=== PATIENT | male | born 1930 | race Caucasian/White ===

== ENCOUNTER → 2016-06-18 | Outpatient (CLI) | payer MEDICARE ==
[~2016-06-18] MED LIST: ATOR20TA G-TUBE; BAZACRE TOP; CALTTAB G-TUBE; FERR220E G-TUBE; LEVO88TA2 G-TUBE; SUPETAB30 G-TUBE; WARF2.5T40 PO; WARF5TAB PO; [UNRECOGNIZED DRUG - CODE] G-TUBE
--- NOTE | 2016-06-18 10:31 | RADRPT ---
EXAM DATE/TIME: 06/18/2016 00:00 [facility] COMPARISON: No previous studies available for comparison. INDICATIONS : Dysphagia. FLUORO TIME: 2.8 minutes IMAGE COUNT: 0 CONTRAST: Dose as prescribed by speech pathologist. MEDICAL HISTORY : silent aspiration SURGICAL HISTORY : endorectomy, peg tube ENCOUNTER: Initial ACUITY: 4 - 6 months PAIN SCORE: 0/10 LOCATION: Bilateral neck FINDINGS: A modified barium swallow was performed with speech pathology. Patient was given a variety of liquids to swallow. There is some pooling in the vallecula and piriform sinuses. No penetration or aspiration. For a full detailed report, see report by the speech pathologist. CONCLUSION: Full report to follow from speech pathologist. No aspiration. Ashish Fried MD on June 18, 2016 at 10:29 Board Certified Radiologist. This report was verified electronically.
== END ==
LOC: HRAD 09:36
PROVIDERS: ATTEND Internal Medicine Gastroenterology
DX: R13.10 Dysphagia, unspecified (principal)
CPT/HCPCS: 74230

== ENCOUNTER 2016-11-16 08:15 | Inpatient (IN) | payer MEDICARE ==
[~2016-11-16] VITALS: Ht 177.8 cm; Wt 72.9 kg
[2016-11-16] VITALS (16 sets, daily range): BP systolic 134–175; BP diastolic 66–89; PULSE 83–114; RESP 12–18; TEMP 97.7–99.8; O2SAT 95–99
[2016-11-16] MEDS ORDERED: ATOR20TA15 G-TUBE (08:37)
[2016-11-16] MEDS ORDERED: CALC1SOL G-TUBE (08:37)
[2016-11-16] MEDS ORDERED: FERR300S G-TUBE (08:37)
[2016-11-16] MEDS ORDERED: CENTCHW4 G-TUBE (08:37)
[2016-11-16] MEDS ORDERED: LEVO88TA2 G-TUBE (08:37)
[2016-11-16] MEDS ORDERED: WARF-18 G-TUBE (08:37)
--- NOTE | 2016-11-16 09:10 | PD ---
HPI Chief Complaint: Fall Time Seen by Provider: 08:31 Travel History International Travel<30 days: No Contact w/Intl Traveler<30days: No Traveled to known affect area: No History of Present Illness HPI 86-year-old male with a history of dementia, atrial fibrillation, hyperlipidemia , hypothyroidism, who presents after a mechanical fall at home. Patient states he finished doing his tube feeding and then went to go exercise. He reports tripping and falling. He denies any loss of consciousness. He reports pain in his lower neck. He also reports pain to his left side of his head. Pain also in his lower lumbar spine and left shoulder and left heel. The patient is on Coumadin for his A. fib. He has a history of dysphagia and tube feeds. He also has a recent skin cancer removal on his right upper cheek below his eye. There is no incontinence. There is no numbness or tingling or weakness of his extremities. PFSH Past Medical History Hx Anticoagulant Therapy: Yes (WARFARIN) Blood Disorders: No Heart Rhythm Problems: Yes Cancer: No Cardiovascular Problems: Yes High Cholesterol: Yes Chest Pain: No Congestive Heart Failure: No Diabetes: No Diminished Hearing: No Endocrine: Yes Gastrointestinal Disorders: Yes (acid reflux) Glaucoma: No Genitourinary: No Hepatitis: No Hiatal Hernia: No Hypertension: Yes Immune Disorder: No Musculoskeletal: Yes (arthritis) Neurologic: No Psychiatric: No Reproductive: No Respiratory: No Integumentary: Yes (SKIN CA ) Thyroid Disease: Yes (hypothyroidism) Tetanus Vaccination: > 5 Years Influenza Vaccination: Yes Past Surgical History AICD: No Body Medical Devices: STERNAL WIRE FROM CABG Cardiac Surgery: Yes (CABG X 4, LEFT CAROTID ENDART. ) Eye Surgery: Yes (CATARACT L&R 2011) Joint Replacement: No Oral Surgery: Yes (TONSILLSL; UVULA ) Pacemaker: No Other Surgery: Yes Social History Alcohol Use: No Tobacco Use: No Substance Use: No Allergies-Medications (Allergen,Severity, Reaction): Coded Allergies: Penicillin (Verified Allergy, Severe, CHILD GIVEN TO FAST, 11/16/16) Reported Meds & Prescriptions Reported Meds & Active Scripts Active Reported Calcitriol Liq (Calcitriol) 1 Mcg/Ml Soln 1 Mcg G-TUBE DAILY Levothyroxine (Levothyroxine Sodium) 88 Mcg Tab 88 Mcg G-TUBE DAILY Ferrous Sulfate Liq (Ferrous Sulfate) 300 Mg/5 Ml Soln 220 Ml G-TUBE DAILY Warfarin 2.5 Mg Tab 2.5 Mg G-TUBE DAILY Atorvastatin (Atorvastatin Calcium) 20 Mg Tab 20 Mg G-TUBE HS Centrum (Multiple Vitamins W/ Minerals) 1 Chew 1 Tab G-TUBE DAILY Review of Systems ROS Limitations: Poor Historian, Other: (history of dementia) Except as stated in HPI: all other systems reviewed are Neg HENT: Positive: Headaches (left lateral), Neck Pain (lower lumbar), No: Lightheadedness Cardiovascular: No: Chest Pain or Discomfort, Palpitations Respiratory: No: Cough, Shortness of Breath Gastrointestinal: No: Nausea, Vomiting, Abdominal Pain Genitourinary: No: Dysuria, Incontinence Musculoskeletal: Positive: Pain (left shoulder, lower lumbar, left heel.), No : Weakness, Edema Neurologic: Positive: Headache, No: Weakness, Dizziness Physical Exam Narrative GENERAL: Well-developed male in no acute respiratory distress. He is in C- spine backboard immobilization. SKIN: Focused skin assessment warm/dry. HEAD: Normocephalic. No obvious external signs of trauma. The patient does have a bandage under his left eye from where he had a skin cancer removed. EYES:No scleral icterus. No injection. Mild drainage in the bilateral eyes. ENT: No nasal bleeding or discharge. Mucous membranes pink and moist. NECK: Trachea midline. C-collar immobilization. On attempt to clear C-spine, patient had no pain on the posterior spinous processes. On lateral movement from side to side he had no cervical pain. On extension of his neck he did have some subjective tenderness in the lower neck. CARDIOVASCULAR: Regular rate and rhythm. No murmur appreciated. RESPIRATORY: No accessory muscle use. Clear to auscultation. Breath sounds equal bilaterally. GASTROINTESTINAL: Abdomen soft, non-tender, nondistended. There is a PEG tube in place appears clean dry and intact as no evidence of infection. MUSCULOSKELETAL: No obvious deformities. Patient has subjective tenderness in his left lateral shoulder. There is good range of motion. Patient also has tenderness to his left heel. No obvious deformity. No abrasions. No pressure sores. On log roll, patient had subjective paraspinous tenderness in his mid lumbar region. No posterior spinous process tenderness. NEUROLOGICAL: Awake and alert. No obvious cranial nerve deficits. Motor grossly within normal limits. Normal speech. Data Data Last Documented VS Vital Signs Date Time Temp Pulse Resp B/P Pulse Ox O2 Delivery O2 Flow Rate FiO2 11/16/16 11:50 97.8 90 17 172/[address] Brain W/O Iv Contrast(Rout) (11/16/16 08:32) Ct Cerv Spine W/O Contrast (11/16/16 08:32) Foot, Heel Only ([id number]) (11/16/16 08:32) Shoulder, Limited(2vws) (11/16/16 08:32) Spine, Lumbar - Ltd (Ap & Lat) (11/16/16 08:32) Complete Blood Count With Diff (11/16/16 08:58) Comprehensive Metabolic Panel (11/16/16 08:58) Prothrombin Time / Inr (Pt) (11/16/16 08:58) Act Partial Throm Time (Ptt) (11/16/16 08:58) Iv Access Insert/Monitor (11/16/16 08:58) Ecg Monitoring (11/16/16 08:58) Oximetry (11/16/16 08:58) Fresh Frozen Plasma (Ffp) (11/16/16 11:46) Blood Product Administration .UPON TRANSFUSION (11/16/16 11:46) Sodium Chlor 0.9% 250 Ml Inj (Ns 250 Ml (11/16/16 12:00) Phytonadione Inj (Vitamin K Inj) (11/16/16 12:00) Labs Laboratory Tests Test 11/16/16 09:00 White Blood Count 6.9 TH/MM3 Red Blood Count 3.70 MIL/MM3 Hemoglobin 14.5 GM/DL Hematocrit 40.6 % Mean Corpuscular Volume 109.5 FL Mean Corpuscular Hemoglobin 39.3 PG Mean Corpuscular Hemoglobin 35.8 % Concent Red Cell Distribution Width 13.1 % Platelet Count 129 TH/MM3 Mean Platelet Volume 8.7 FL Neutrophils (%) (Auto) 66.5 % Lymphocytes (%) (Auto) 21.6 % Monocytes (%) (Auto) 9.0 % Eosinophils (%) (Auto) 2.6 % Basophils (%) (Auto) 0.3 % Neutrophils # (Auto) 4.6 TH/MM3 Lymphocytes # (Auto) 1.5 TH/MM3 Monocytes # (Auto) 0.6 TH/MM3 Eosinophils # (Auto) 0.2 TH/MM3 Basophils # (Auto) 0.0 TH/MM3 CBC Comment DIFF FINAL Differential Comment Prothrombin Time 23.6 SEC Prothromb Time International 2.1 RATIO Ratio Activated Partial 34.0 SEC Thromboplast Time Sodium Level 133 MEQ/L Potassium Level 4.1 MEQ/L Chloride Level 97 MEQ/L Carbon Dioxide Level 27.4 MEQ/L Anion Gap 9 MEQ/L Blood Urea Nitrogen 27 MG/DL Creatinine 1.03 MG/DL Estimat Glomerular Filtration 69 ML/MIN Rate Random Glucose 181 MG/DL Calcium Level 9.0 MG/DL Total Bilirubin 1.3 MG/DL Aspartate Amino Transf 30 U/L (AST/SGOT) Alanine Aminotransferase 30 U/L (ALT/SGPT) Alkaline Phosphatase 72 U/L Total Protein 6.6 GM/DL Albumin 3.4 GM/DL MDM Medical Decision Making Medical Screen Exam Complete: Yes Emergency Medical Condition: Yes Interpretation(s) Last 24 hours Impressions Shoulder X-Ray 11/16/16831 Signed Impressions: Service Date/Time: Wednesday, November 16, 2016 09:14 - CONCLUSION: Unremarkable study. Debbi Galeas MD Lumbar Spine X-Ray 11/16/16831 Signed Impressions: Service Date/Time: Wednesday, November 16, 2016 09:13 - CONCLUSION: Chronic changes. Debbi Galeas MD Head CT 11/16/16831 Signed Impressions: Service Date/Time: Wednesday, November 16, 2016 10:02 - CONCLUSION: Slight subarachnoid hemorrhage right high convexity superior parietal lobule with a tiny adjacent subdural hematoma. Debbi Galeas MD Foot X-Ray 11/16/16831 Signed Impressions: Service Date/Time: Wednesday, November 16, 2016 09:17 - CONCLUSION: Chronic changes and no evidence for acute fracture. Debbi Galeas MD Cervical Spine CT 11/16/16831 Signed Impressions: Service Date/Time: Wednesday, November 16, 2016 10:04 - CONCLUSION: Degenerative changes as described above without fracture. Wes Quintanilla MD FACR Differential Diagnosis Intracranial injury versus C-spine injury versus lumbar spine injury versus left shoulder injury versus left heel injury Narrative Course 86-year-old male with a history of atrial fibrillation, on Coumadin, presents after having a mechanical fall. The patient had neck pain left shoulder pain and lower back pain and left ankle pain initially. Then he started saying he had some pain in his posterior/left head. CT scan of the C-spine and head were ordered. Head CT shows a small subarachnoid and subdural hemorrhage on the right hemisphere. Patient is awake and appropriate. Vitamin K 10 mg have been ordered as well as 2 units of FFP. The patient's INR is 2.1. The case was discussed with Dr. Argelia STEIN I with neurosurgery and Dr. Katharine Rosado, blueprint processor. The patient be admitted to intensive care. I discussed with both patient and his about his condition and they're amenable to the plan. Diagnosis Primary Impression: right sided high convex to the subdural and subarachnoid hemorrhage. Additional Impressions: anticoagulated Atrial fibrillation Admitting Information Admitting Physician Requests: Admit Raghu Rasmussen MD Nov 16, 2016 09:10
[2016-11-16 09:27] LABS: AUTOMATED NEUTROPHIL # 4.6 TH/MM3 (1.8-7.7); BASOPHIL % 0.3 % (0.0-2.0); EOSINOPHIL # 0.2 TH/MM3 (0-0.4); EOSINOPHIL % 2.6 % (0.0-4.0); HEMATOCRIT 40.6 % (39.0-51.0); HEMO FLAGS DIFF FINAL; LYMPH % 21.6 % (9.0-44.0); LYMPHOCYTE # 1.5 TH/MM3 (1.0-4.8); MEAN CELL VOLUME 109.5 FL (80.0-100.0); MEAN CORPUSCULAR HEMOGLOBIN 39.3 PG (27.0-34.0); MEAN CORPUSCULAR HGB CONC 35.8 % (32.0-36.0); NEUT % 66.5 % (16.0-70.0); PLATELET COUNT 129 TH/MM3 (150-450); RED CELL DISTRIBUTION WIDTH 13.1 % (11.6-17.2); WHITE BLOOD COUNT 6.9 TH/MM3 (4.0-11.0)
--- NOTE | 2016-11-16 09:31 | RADRPT ---
EXAM DATE/TIME: 11/16/2016 09:17 [facility] COMPARISON: No previous studies available for comparison. INDICATIONS : Pain from fall onto concrete. MEDICAL HISTORY : None. SURGICAL HISTORY : None. ENCOUNTER: Initial ACUITY: 1 day PAIN SCORE: 3/10 LOCATION: Left heel. FINDINGS: No definite fractures, or dislocations are identified. No definite lytic or sclerotic lesion is seen . Chronic atherosclerotic calcifications are seen involving the visualized arteries. Calcaneal spurs are present at the attachment site of the plantar aponeurosis and Achilles tendon. CONCLUSION: Chronic changes and no evidence for acute fracture. Debbi Galeas MD on November 16, 2016 at 9:27 Board Certified Radiologist. This report was verified electronically.
[2016-11-16 09:35] LABS: INTERNATIONAL NORMALIZED RATIO 2.1 RATIO; PROTHROMBIN TIME - PATIENT 23.6 SEC (9.8-11.6)
[2016-11-16 09:51] LABS: ANION GAP 9 MEQ/L (5-15); AST (GOT) 30 U/L (15-37); BICARBONATE 27.4 MEQ/L (21.0-32.0); BLOOD UREA NITROGEN 27 MG/DL (7-18); CHLORIDE 97 MEQ/L (98-107); GLOMERULAR FILTRATION RATE 69 ML/MIN (>89); POTASSIUM 4.1 MEQ/L (3.5-5.1); SODIUM (NA) 133 MEQ/L (136-145)
--- NOTE | 2016-11-16 09:52 | RADRPT ---
EXAM DATE/TIME: 11/16/2016 09:13 [facility] COMPARISON: No previous studies available for comparison. INDICATIONS : Pain from fall onto concrete. MEDICAL HISTORY : None. SURGICAL HISTORY : J-tube placement. ENCOUNTER: Initial ACUITY: 1 day PAIN SCORE: 6/10 LOCATION: Lumbar spine. FINDINGS: No appreciable compression deformities, spondylolisthesis, or spondylolysis is seen. Significant deg enerative changes are seen within the disc space and facets. Chronic atherosclerotic calcifications a re seen without any definite aneurysmal dilatations for technique. CONCLUSION: Chronic changes. Debbi Galeas MD on November 16, 2016 at 9:49 Board Certified Radiologist. This report was verified electronically.
[2016-11-16 09:55] LABS: ALKALINE PHOSPHATASE 72 U/L (45-117); ALT (GPT) 30 U/L (12-78); TOTAL BILIRUBIN ADULT 1.3 MG/DL (0.2-1.0)
--- NOTE | 2016-11-16 10:02 | RADRPT ---
EXAM DATE/TIME: 11/16/2016 09:14 [facility] COMPARISON: No previous studies available for comparison. INDICATIONS : Pain from fall onto concrete. MEDICAL HISTORY : None. SURGICAL HISTORY : None. ENCOUNTER: Initial ACUITY: 1 day PAIN SCORE: 6/10 LOCATION: Left shoulder. FINDINGS: No definite fractures, or dislocations are identified. No definite lytic or sclerotic lesion is seen . The joint space is well maintained. CONCLUSION: Unremarkable study. Debbi Galeas MD on November 16, 2016 at 10:00 Board Certified Radiologist. This report was verified electronically.
--- NOTE | 2016-11-16 10:55 | RADRPT ---
EXAM DATE/TIME: 11/16/2016 10:02 [facility] COMPARISON: CT BRAIN W/O CONTRAST, January 05, 2016, 9:07. INDICATIONS : Fall, head and neck pain. RADIATION DOSE: 56.39 CTDIvol (mGy) MEDICAL HISTORY : Hypertension. SURGICAL HISTORY : Tonsillectomy. Carotid endarterectomy.CABG ENCOUNTER: Initial ACUITY: 1 day PAIN SCALE: 4/10 LOCATION: Left cranial TECHNIQUE: Multiple contiguous axial images were obtained of the head. Using automated exposure control and adj ustment of the mA and/or kV according to patient size, radiation dose was kept as low as reasonably a chievable to obtain optimal diagnostic quality images. DICOM format image data is available electro nically for review and comparison. FINDINGS: There is small area of subarachnoid hemorrhage in the high convexity superior parietal lobule wi th tiny subdural hematoma subcentimeter in size in the adjacent falx. There are gas bubbles anterior to the right maxillary sinus with slight degree of soft tissue swelling at this site. There is no john dence for skull fracture. There is no mass effect or signs of acute infarction. Slight degree of brai n atrophy is seen. Slight periventricular white matter changes are seen nonspecific mostly consistent with chronic small vessel ischemic changes. CONCLUSION: Slight subarachnoid hemorrhage right high convexity superior parietal lobule with a tiny adjacent sub dural hematoma. Debbi Galeas MD on November 16, 2016 at 10:44 Board Certified Radiologist. This report was verified electronically.
--- NOTE | 2016-11-16 11:02 | RADRPT ---
EXAM DATE/TIME: 11/16/2016 10:04 [facility] COMPARISON: No previous studies available for comparison. INDICATIONS : Fall, head and neck pain. RADIATION DOSE: 33.70 CTDIvol (mGy) MEDICAL HISTORY : Hypertension. SURGICAL HISTORY : CABG Carotid endarterectomy.Tonsillectomy. ENCOUNTER: Initial ACUITY: 1 day PAIN SCALE: 4/10 LOCATION: neck TECHNIQUE: Volumetric scanning of the cervical spine was performed. Multiplanar reconstructions in the sagittal, coronal and oblique axial planes were performed. Using automated exposure control and adjustment o f the mA and/or kV according to patient size, radiation dose was kept as low as reasonably achievable to obtain optimal diagnostic quality images. DICOM format image data is available electronically f or review and comparison. FINDINGS: There are moderate degenerative changes in the cervical spine. Degenerative changes are seen at the C1-C2 articulation. C2-C3: Mild facet disease is evident without significant spinal stenosis. C3-C4: Extensive uncinate ridging is present with bilateral neural foramina encroachment worse on the right than the left. C4-C5: Moderate uncinate ridging is present with significant facet disease and neural foramen encroachment o n the right. C5-C6: Mild uncinate ridging is present. Minimal neuroforamina encroachment is noted. C6-C7 moderate facet disease is evident with bilateral neural foramina encroachment worse on the left C7-T1 is in the level. CONCLUSION: Degenerative changes as described above without fracture. Wes Quintanilla MD FACR on November 16, 2016 at 10:58 Board Certified Radiologist. This report was verified electronically.
[2016-11-16] MEDS ORDERED: SODIUM CHLOR 0.9% 250 ML INJ 250 ML IV ONE (12:00)
[2016-11-16] MEDS ORDERED: MISCELLANEOUS NURSING INFORMATION XX SCH (13:00)
[2016-11-16] MEDS ORDERED: MAGNESIUM HYDROXIDE SUSP 30 ML CUP PO PRN (13:00)
[2016-11-16] MEDS ORDERED: SODIUM CHLORIDE 0.9% FLUSH 10 ML FLUSH IV FLUSH PRN (13:00)
[2016-11-16] MEDS ORDERED: CHLORHEXIDINE GLUCONATE 2 % 1 PACK (2 CLOTHS) TOP PRN (13:00)
[2016-11-16] MEDS ORDERED: LACTULOSE SYRUP 20 GM/30 ML CUP PO PRN (13:00)
[2016-11-16] MEDS ORDERED: BISACODYL 10 MG SUPP RECTAL PRN (13:00)
[2016-11-16] MEDS ORDERED: ACETAMINOPHEN 325 MG TAB PO PRN (13:00)
[2016-11-16] MEDS ORDERED: RESP: ALBUTEROL 2.5 MG/IPRATROPIUM 0.5 MG NEB (PRN) INH (13:00)
[2016-11-16] MEDS ORDERED: SENNOSIDES 8.6 MG TAB PO PRN (13:00)
[2016-11-16] MEDS: SODIUM CHLOR 0.9% 1000 ML INJ 1,000 ML IV SCH (13:33)
--- NOTE | 2016-11-16 13:45 | HHI.HP ---
HPI Service Critical Care Medicine Primary Care Physician Unknown Admission Diagnosis right traumatic subarachnoid/subdural hematoma, anticoagulated Diagnosis: Travel History International Travel<30 Days: No Contact w/Intl Traveler <30 Da: No Traveled to Known Affected Are: No History of Present Illness This is an 86-year-old male patient that presented to the ED status post a mechanical fall, with a recent history of progressive weakness. The patient is on chronic anticoagulation (coumadin) for atrial fibrillation. Imaging studies laboratory studies were obtained. The patient was noted to have an INR of 2.1, CT scan of the head revealed slight subarachnoid hemorrhage superior parietal lobe, and small subdural hemorrhage. 2 units of FFP are provided and vitamin K in the ED. Neurosurgery was consulted , and felt to be nonoperable at this time. The care medicine was consulted for management. PFSH Past Medical History Hx Anticoagulant Therapy: Yes (WARFARIN) Blood Disorders: No Heart Rhythm Problems: Yes Cancer: No Cardiovascular Problems: Yes High Cholesterol: Yes Chest Pain: No Congestive Heart Failure: No Diabetes: No Diminished Hearing: No Endocrine: Yes Gastrointestinal Disorders: Yes (acid reflux) Glaucoma: No Genitourinary: No Hepatitis: No Hiatal Hernia: No Hypertension: Yes Immune Disorder: No Musculoskeletal: Yes (arthritis) Neurologic: No Psychiatric: No Reproductive: No Respiratory: No Integumentary: Yes (SKIN CA ) Thyroid Disease: Yes (hypothyroidism) Tetanus Vaccination: > 5 Years Influenza Vaccination: Yes Past Surgical History AICD: No Body Medical Devices: STERNAL WIRE FROM CABG Cardiac Surgery: Yes (CABG X 4, LEFT CAROTID ENDART. ) Eye Surgery: Yes (CATARACT L&R 2011) Joint Replacement: No Oral Surgery: Yes (TONSILLSL; UVULA ) Pacemaker: No Other Surgery: Yes PEG placement 12/10/2015 Social History Alcohol Use: No Tobacco Use: No Substance Use: No Allergies-Medications (Allergen,Severity, Reaction): Coded Allergies: Penicillin (Verified Allergy, Severe, CHILD GIVEN TO FAST, 11/16/16) Reported Meds & Prescriptions Reported Meds & Active Scripts Active Reported Calcitriol Liq (Calcitriol) 1 Mcg/Ml Soln 1 Mcg G-TUBE DAILY Levothyroxine (Levothyroxine Sodium) 88 Mcg Tab 88 Mcg G-TUBE DAILY Ferrous Sulfate Liq (Ferrous Sulfate) 300 Mg/5 Ml Soln 220 Ml G-TUBE DAILY Warfarin 2.5 Mg Tab 2.5 Mg G-TUBE DAILY Atorvastatin (Atorvastatin Calcium) 20 Mg Tab 20 Mg G-TUBE HS Centrum (Multiple Vitamins W/ Minerals) 1 Chew 1 Tab G-TUBE DAILY Review of Systems ROS Limitations: Poor Historian Constitutional: COMPLAINS OF: Dizziness Gastrointestinal: Dysphagia PFSH Past Family Social History Past Medical History Skin cancer Hypertension Hyperlipidemia Carotid disease Hypothyroid Coronary artery disease Cataracts Dysphagia, cricopharyngeal spasms Vocal cord paralysis with palatal excision. Valvular heart disease Past Family Social History Allergies: Coded Allergies: Penicillin (Verified Allergy, Severe, CHILD GIVEN TO FAST, 11/16/16) Physical Exam Vital Signs Vital Signs Date Time Temp Pulse Resp B/P Pulse Ox O2 Delivery O2 Flow Rate FiO2 11/16/16 13:15 97.7 92 16 155/81 98 Room Air 11/16/16 11:50 97.8 90 17 172/88 98 Room Air 11/16/16 09:46 97.8 94 16 156/81 99 Room Air 11/16/16 08:58 16 98 Room Air 11/16/16 08:21 97.8 99 18 162/80 99 11/16/16 08:21 87 16 98 Room Air Physical Exam GENERAL: Elderly gentleman, weak but responsive SKIN: Warm and dry. HEAD: Atraumatic. Normocephalic. Minor ecchymotic bruise on forehead EYES: Pupils equal and round. No scleral icterus. No injection or drainage. Dressing clean dry intact right cheek( patient is status post excision of basal cell carcinoma) ENT: No nasal bleeding or discharge. Mucous membranes pink and moist. NECK: Trachea midline. No JVD. Uvula midline CARDIOVASCULAR: Normal rate, regular rhythm. RESPIRATORY: No accessory muscle use. Clear to auscultation. Breath sounds equal bilaterally. GASTROINTESTINAL: Abdomen soft, non-tender, nondistended. No guarding. MUSCULOSKELETAL: Extremities without clubbing, cyanosis, or edema. No obvious deformities. NEUROLOGICAL: Awake and alert. RASS 0. No gross focal/sensory deficits. Follows commands in all 4 extremities. Laboratory Laboratory Tests Test 11/16/16 11/16/16 09:00 12:00 White Blood Count 6.9 Red Blood Count 3.70 Hemoglobin 14.5 Hematocrit 40.6 Mean Corpuscular Volume 109.5 Mean Corpuscular Hemoglobin 39.3 Mean Corpuscular Hemoglobin 35.8 Concent Red Cell Distribution Width 13.1 Platelet Count 129 Mean Platelet Volume 8.7 Neutrophils (%) (Auto) 66.5 Lymphocytes (%) (Auto) 21.6 Monocytes (%) (Auto) 9.0 Eosinophils (%) (Auto) 2.6 Basophils (%) (Auto) 0.3 Neutrophils # (Auto) 4.6 Lymphocytes # (Auto) 1.5 Monocytes # (Auto) 0.6 Eosinophils # (Auto) 0.2 Basophils # (Auto) 0.0 CBC Comment DIFF FINAL Differential Comment Prothrombin Time 23.6 Prothromb Time International 2.1 Ratio Activated Partial 34.0 Thromboplast Time Sodium Level 133 Potassium Level 4.1 Chloride Level 97 Carbon Dioxide Level 27.4 Anion Gap 9 Blood Urea Nitrogen 27 Creatinine 1.03 Estimat Glomerular Filtration 69 Rate Random Glucose 181 Calcium Level 9.0 Total Bilirubin 1.3 Aspartate Amino Transf 30 (AST/SGOT) Alanine Aminotransferase 30 (ALT/SGPT) Alkaline Phosphatase 72 Total Protein 6.6 Albumin 3.4 Blood Bank Comment Result Diagram: 11/16/1600 11/16/16899 Imaging Last Impressions Shoulder X-Ray 11/16/16831 Signed Impressions: Service Date/Time: Wednesday, November 16, 2016 09:14 - CONCLUSION: Unremarkable study. Debbi Galeas MD Lumbar Spine X-Ray 11/16/16831 Signed Impressions: Service Date/Time: Wednesday, November 16, 2016 09:13 - CONCLUSION: Chronic changes. Debbi Galeas MD Head CT 11/16/16831 Signed Impressions: Service Date/Time: Wednesday, November 16, 2016 10:02 - CONCLUSION: Slight subarachnoid hemorrhage right high convexity superior parietal lobule with a tiny adjacent subdural hematoma. Debbi Galeas MD Foot X-Ray 11/16/16831 Signed Impressions: Service Date/Time: Wednesday, November 16, 2016 09:17 - CONCLUSION: Chronic changes and no evidence for acute fracture. Debbi Galeas MD Cervical Spine CT 11/16/16831 Signed Impressions: Service Date/Time: Wednesday, November 16, 2016 10:04 - CONCLUSION: Degenerative changes as described above without fracture. Wes Quintanilla MD FACR Septic Shock Reassessment Heart: Regular rate and rhythm Lungs: Clear Skin: Warm Capillary Refill: Brisk Assessment and Plan Assessment and Plan Assessment Status post fall-TBI Subdural hemorrhage Subarachnoid hemorrhage Chronic anti-coagulation Generalized weakness Chronic hyponatremia Hypothyroidism Basal cell carcinoma facial H/O carotid artery disease- S/P Left CEA H/O CAD - S/P CABG 1996 Hyperlipidemia Dysphagia-S/P G-tube placement 11/2015 S/P excision of basal cell carcinoma right face Plan Neurologic: Neurochecks per ICU protocol GCS 15 Keppra twice a day Follow-up repeat CT without contrast in a.m. Tylenol 650 mg every 6 hours when necessary for pain Nsgy following - Dr. George Neurology consulted Respiratory: No acute issues Maintain O2 sat greater than 92%. 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 Mitral valve prolapse mild. Moderate to severe mitral regurgitation. PASP 47mmHg Renal: Monitor BMP Apply condom catheter -- Strict I/Os FEN/GI: Monitor BMP-patient has history of chronic hyponatremia, closely monitor sodium levels Normal saline 42 cc/hour Continue atorvastatin Maintain NPO x medications status for now. Post repeat CT in a.m., resume tube feeds Jevity 1.5-6 cans per day, 1 can every 3 hours Heme/ID: Monitor INR F/U post transfusion INR this afternoon Obtain cultures if clinically indicated Monitor right facial dressing for signs of erythema or redness or drainage Endocrine: Continue levothyroxine 88mcgs/day Glucose monitoring per ICU protocol -- SSI MSK: Consider rehabilitation facility post discharge secondary to generalized weakness PT evaluation and treat Prophylaxis: GI Prophylaxis Protonix DVT Prophylaxis -- SCDs No pharmacological DVT prophylaxis in the setting of cerbral bleed Lines: Peripheral IVs 2 Dispo: This patient remains critically ill with one or more organ systems which are or may become a threat to life. I have spent in excess of 30 minutes discontinuously in the care and management of this patient. This time is exclusive of procedures, and includes, but is not limited to, evaluation of the patient, review of the medical record, discussions with family, consultants, nursing staff, or respiratory therapy, and documentation in the medical record. Code Status Full Discussed Condition With , and Katharine Cartagena MD Nov 16, 2016 13:45
[2016-11-16] MEDS ORDERED: PHYTONADIONE INJ 10 MG in SODIUM CHLORIDE 0.9% INJ 50 ML IV ONE (14:00)
--- NOTE | 2016-11-16 16:49 | MB ---
cc: PEYMAN SCHULZ DATE OF CONSULTATION: 11/16/2016. REASON FOR CONSULTATION: I was asked to see this 86-year-old gentleman with history of dementia, atrial fibrillation, hyperlipidemia, hypothyroidism on coumadin anticoagulation for closed head injury following a slip and fall at home. REQUESTING PHYSICIAN: Dr. Rasmussen. HISTORY OF PRESENT ILLNESS: No syncopal episode and no loss of consciousness. The patient was brought to [facility] emergency room for evaluation and CT scan of the brain was performed, which I reviewed. The study shows a small amount of traumatic subarachnoid hemorrhage and interhemispheric subdural along the falx and right parietal cortex. No parenchymal bleed is noted. No cortical extra-axial fluid or blood collections. Currently the patient is awake, alert, not complaining of headache or nausea. PAST MEDICAL HISTORY: Past medical history is pertinent as stated above in the history of present illness. MEDICATIONS: Current medications are: 1. Calcitriol. 2. Levothyroxine. 3. Ferrous sulfate. 4. Coumadin. 5. Atorvastatin. 6. A multivitamin. ALLERGIES: PENICILLIN. HABITS: The patient does not smoke. He does not use alcohol. REVIEW OF SYSTEMS: The patient is having in no complaints of significant headache. No neck pain. No complaints of lightheadedness or visual dysfunction. Remainder of the ten-point review of systems is negative. PHYSICAL EXAMINATION: GENERAL: A well-developed elderly man who is pleasant, awake and alert and cooperative for the examination. HEAD, EYES, EARS, NOSE, THROAT: Head is normocephalic. The patient has swelling and abrasion at the parietooccipital vertex. He has a bandage and swelling under the right eye secondary to recent removal of a basal cell skin cancer. Pupils equal, reactive to light. Extraocular movements are intact. NECK: Supple. Full range of motion. No posterior tenderness. NEUROLOGIC EXAMINATION: The patient is alert and awake. He is oriented to himself and his age. He could not give the correct year and date; however, his who is present states this is normal secondary to his dementia. Speech is intact. He follows commands without difficulty. Cranial nerves II-XII intact. Motor function 5/5 upper and lower extremities. Sensory is intact to primary modalities and reflexes are hypoactive. Gait not tested. IMAGING STUDIES: CT of the brain as stated in history of present illness. Cervical spine CT scan shows diffuse spondylytic change without fracture or subluxation. ASSESSMENT: 1. Closed head injury. 2. [place] Coma Score 14 secondary to mild confusion from history of dementia. 3. A CT scan showing small amount of traumatic subarachnoid hemorrhage and small interhemispheric subdural. RECOMMENDATIONS: 1. No surgical intervention indicated. 2. The patient will be admitted to the intensive care unit for observation. 3. Coumadin will be reversed with fresh frozen plasma and vitamin K. 4. Repeat CT scan of the brain in 12-24 hours. MD DONAL Melo/MALIA /1:42 PM /4:32 PM
[2016-11-16] MEDS ORDERED: niCARdipine INJ 25 MG in SODIUM CHLOR 0.9% 250 ML INJ 250 ML IV SCH (17:00)
[2016-11-16] MEDS ORDERED: LABETALOL HCL 100 MG/20 ML VIAL IV PUSH PRN (17:00)
[2016-11-16] MEDS: hydrALAZINE HCL 20 MG/ML VIAL IV PUSH PRN (18:38)
[2016-11-16] MEDS: SODIUM CHLORIDE 0.9% FLUSH 10 ML FLUSH IV FLUSH SCH (21:00)
[2016-11-16] MEDS: ATORVASTATIN 20 MG TAB G-TUBE SCH (21:15)
[2016-11-16] MEDS: levETIRAcetam 500 MG TAB PO SCH (21:15)
[2016-11-16] MEDS: DOCUSATE SODIUM 50 MG/SENNA 8.6 MG TAB PO SCH (21:15)
[2016-11-16 21:47] LABS: INTERNATIONAL NORMALIZED RATIO 1.3 RATIO
[2016-11-17] VITALS (13 sets, daily range): BP systolic 110–146; BP diastolic 56–68; PULSE 75–91; RESP 13–17; TEMP 97.3–98.5; O2SAT 95–98
[2016-11-17] MEDS: CHLORHEXIDINE GLUCONATE 2 % 1 PACK (2 CLOTHS) TOP SCH (04:00)
[2016-11-17 06:10] LABS: BICARBONATE 28.7 MEQ/L (21.0-32.0); MAGNESIUM 2.2 MG/DL (1.5-2.5); POTASSIUM 4.2 MEQ/L (3.5-5.1)
[2016-11-17] MEDS: LEVOTHYROXINE SODIUM 88 MCG TAB PO SCH (06:12)
--- NOTE | 2016-11-17 06:14 | HHI.NSPN ---
History Interval History 86-year-old gentleman with mild dementia status post lip and fall accident at home with resultant closed head injury and a small amount of traumatic right parietal subarachnoid hemorrhage and parafalcine subdural. He is awake and alert with no complaints of headache or nausea. No complaints of weakness or numbness in the extremities. Exam Results Vital Signs Date Time Temp Pulse Resp B/P Pulse Ox O2 Delivery O2 Flow Rate FiO2 11/17/16 04:00 75 11/17/16 03:00 98.0 14 146/67 98 11/16/16 19:00 Room Air Intake and Output 11/16/16 11/16/16 11/17/16 08:00 16:00 00:00 Intake Total 30 ml Output Total 800 ml 560 ml Balance -800 ml -530 ml Physical Examination Resting comfortably in bed. Easily arousable. Neurological: Patient is oriented to himself and his age. He remains disoriented to the date and year but this is his baseline status due to dementia. Speech is intact. Motor function 5 over 5 upper and lower extremities. Sensory examination intact. Lab, Micro, Other Results Laboratory Tests Test 11/16/16 11/16/16 11/16/16 11/17/16 09:00 12:00 20:43 04:30 White Blood Count 6.9 Red Blood Count 3.70 Hemoglobin 14.5 Hematocrit 40.6 Mean Corpuscular Volume 109.5 Mean Corpuscular Hemoglobin 39.3 Mean Corpuscular Hemoglobin 35.8 Concent Red Cell Distribution Width 13.1 Platelet Count 129 Mean Platelet Volume 8.7 Neutrophils (%) (Auto) 66.5 Lymphocytes (%) (Auto) 21.6 Monocytes (%) (Auto) 9.0 Eosinophils (%) (Auto) 2.6 Basophils (%) (Auto) 0.3 Neutrophils # (Auto) 4.6 Lymphocytes # (Auto) 1.5 Monocytes # (Auto) 0.6 Eosinophils # (Auto) 0.2 Basophils # (Auto) 0.0 CBC Comment DIFF FINAL Differential Comment Prothrombin Time 23.6 15.0 Prothromb Time International 2.1 1.3 Ratio Activated Partial 34.0 Thromboplast Time Sodium Level 133 138 Potassium Level 4.1 4.2 Chloride Level 97 100 Carbon Dioxide Level 27.4 28.7 Anion Gap 9 9 Blood Urea Nitrogen 27 25 Creatinine 1.03 1.00 Estimat Glomerular Filtration 69 71 Rate Random Glucose 181 117 Calcium Level 9.0 8.8 Total Bilirubin 1.3 Aspartate Amino Transf 30 (AST/SGOT) Alanine Aminotransferase 30 (ALT/SGPT) Alkaline Phosphatase 72 Total Protein 6.6 Albumin 3.4 Blood Bank Comment Phosphorus Level 2.9 Magnesium Level 2.2 Medical Decision Making Impression and Plan Status post closed head injury with traumatic subarachnoid and subdural hemorrhage. Plan: Patient waiting repeat CT scan of the brain. Can be transferred from the ICU down to the floor if CT scan stable. Will begin mobilization. Marlon Muniz MD Nov 17, 2016 06:14
[2016-11-17 07:08] LABS: HEMATOCRIT 39.1 % (39.0-51.0); MEAN CELL VOLUME 104.1 FL (80.0-100.0); MEAN CORPUSCULAR HEMOGLOBIN 37.1 PG (27.0-34.0); MEAN CORPUSCULAR HGB CONC 35.7 % (32.0-36.0); PLATELET COUNT 118 TH/MM3 (150-450); RED BLOOD COUNT 3.75 MIL/MM3 (4.50-5.90); RED CELL DISTRIBUTION WIDTH 13.1 % (11.6-17.2); REVIEW FLAG FINAL; WHITE BLOOD COUNT 9.6 TH/MM3 (4.0-11.0)
[2016-11-17] MEDS: hydrALAZINE HCL 20 MG/ML VIAL IV PUSH PRN (07:13)
[2016-11-17 07:30] LABS: INTERNATIONAL NORMALIZED RATIO 1.2 RATIO; PROTHROMBIN TIME - PATIENT 13.3 SEC (9.8-11.6)
[2016-11-17] MEDS: PANTOPRAZOLE SODIUM 40 MG VIAL IV SCH (08:19)
[2016-11-17] MEDS: DOCUSATE SODIUM 50 MG/SENNA 8.6 MG TAB PO SCH ×2 (08:19→20:56)
[2016-11-17] MEDS: FERROUS SULFATE 300 MG /5ML UDC G-TUBE SCH (08:19)
[2016-11-17] MEDS: SODIUM CHLORIDE 0.9% FLUSH 10 ML FLUSH IV FLUSH SCH ×2 (08:20→20:56)
[2016-11-17] MEDS: levETIRAcetam 500 MG TAB PO SCH ×2 (08:20→20:56)
[2016-11-17] MEDS ORDERED: CALCITRIOL 1 MCG/ML G-TUBE SCH (09:00)
--- NOTE | 2016-11-17 09:14 | HHI.CCPN ---
Subjective Remarks/Hospital Course This is an 86-year-old male patient that presented to the ED status post a mechanical fall, with a recent history of progressive weakness. The patient is on chronic anticoagulation (coumadin) for atrial fibrillation. Imaging studies laboratory studies were obtained. The patient was noted to have an INR of 2.1, CT scan of the head revealed slight subarachnoid hemorrhage superior parietal lobe, and small subdural hemorrhage. 2 units of FFP are provided and vitamin K in the ED. Neurosurgery was consulted , and felt to be nonoperable at this time. Critical Care medicine was consulted for management. 11/17: Nonfocal exam, alert, cooperative. INR 1.2. Objective Vital Signs Date Time Temp Pulse Resp B/P Pulse Ox O2 Delivery O2 Flow Rate FiO2 11/17/16 08:15 97 21 11/17/16 08:00 98.4 90 13 112/56 11/17/16 07:00 Room Air Intake and Output 11/16/16 11/16/16 11/16/16 07:59 15:59 23:59 Intake Total 30 ml Output Total 800 ml 560 ml Balance -800 ml -530 ml Result Diagram: 11/17/16 0450 11/17/16 0430 Imaging Last Impressions Shoulder X-Ray 11/16/16831 Signed Impressions: Service Date/Time: Wednesday, November 16, 2016 09:14 - CONCLUSION: Unremarkable study. Debbi Galeas MD Lumbar Spine X-Ray 11/16/16831 Signed Impressions: Service Date/Time: Wednesday, November 16, 2016 09:13 - CONCLUSION: Chronic changes. Debbi Galeas MD Head CT 11/16/16831 Signed Impressions: Service Date/Time: Wednesday, November 16, 2016 10:02 - CONCLUSION: Slight subarachnoid hemorrhage right high convexity superior parietal lobule with a tiny adjacent subdural hematoma. Debbi Galeas MD Foot X-Ray 11/16/16831 Signed Impressions: Service Date/Time: Wednesday, November 16, 2016 09:17 - CONCLUSION: Chronic changes and no evidence for acute fracture. Debbi Galeas MD Cervical Spine CT 11/16/16831 Signed Impressions: Service Date/Time: Wednesday, November 16, 2016 10:04 - CONCLUSION: Degenerative changes as described above without fracture. Wes Quintanilla MD FACR Objective Remarks GENERAL: Anxious male, alert. HEAD: Normocephalic. No obvious external signs of trauma. Bandage under his left eye following skin cancer removal. ENT: No nasal bleeding or discharge. Mucous membranes pink and moist. NECK: Trachea midline. No tenderness. Airway widely patent. CARDIOVASCULAR: Regular rate and rhythm. No m,r. No JVD. RESPIRATORY: Clear. Breath sounds equal bilaterally. No wheezes. GASTROINTESTINAL: Abdomen soft, non-tender, nondistended. PEG tube in place, clean dry and intact. EXTREMITIES: Warm, well perfused. NEUROLOGICAL: Awake and alert, cooperative. Follows commands. Motor grossly within normal limits. Normal speech. A/P Assessment and Plan Assessment: Status post fall-TBI Subdural hemorrhage Subarachnoid hemorrhage Chronic anti-coagulation Generalized weakness Chronic hyponatremia Hypothyroidism Basal cell carcinoma facial H/O carotid artery disease- S/P Left CEA H/O CAD - S/P CABG 1996 Hyperlipidemia Dysphagia-S/P G-tube placement 11/2015 S/P excision of basal cell carcinoma right face Plan Neurologic: Neurochecks per ICU protocol GCS 15 Keppra twice a day, d/c Follow-up repeat CT without contrast in a.m. Tylenol 650 mg every 6 hours when necessary for pain Nsgy following - Dr. George Neurology following. Respiratory: No acute issues Maintain O2 sat greater than 92%. 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 Mitral valve prolapse mild. Moderate to severe mitral regurgitation. PASP 47mmHg Renal: Monitor BMP Apply condom catheter -- Strict I/Os FEN/GI: Monitor BMP-patient has history of chronic hyponatremia, closely monitor sodium levels Normal saline 42 cc/hour Continue atorvastatin Maintain NPO x medications status for now. Post repeat CT in a.m., resume tube feeds Jevity 1.5-6 cans per day, 1 can every 3 hours Heme/ID: Monitor INR F/U post transfusion INR this afternoon Obtain cultures if clinically indicated Monitor right facial dressing for signs of erythema or redness or drainage Endocrine: Continue levothyroxine 88mcgs/day Glucose monitoring per ICU protocol -- SSI MSK: Consider rehabilitation facility post discharge secondary to generalized weakness PT evaluation and treat Prophylaxis: GI Prophylaxis Protonix DVT Prophylaxis -- SCDs No pharmacological DVT prophylaxis in the setting of cerebral bleed Lines: Peripheral IVs 2 Dispo: Overall impression: Alert and cooperative s/p closed head injury from fall. May go to floor if OK with neurosurgery. Raghu Posadas MD Nov 17, 2016 09:14
--- NOTE | 2016-11-17 09:56 | RADRPT ---
EXAM DATE/TIME: 11/17/2016 09:07 [facility] COMPARISON: CT BRAIN W/O CONTRAST, November 16, 2016, 10:02. INDICATIONS : Evaluate status of subarachnoid hemorrhage and subdural hematoma seen on prior CT brain. RADIATION DOSE: 56.35 CTDIvol (mGy) MEDICAL HISTORY : Hypertension. SURGICAL HISTORY : Carotid endarterectomy. CABGTonsillectomy. ENCOUNTER: Initial ACUITY: 2 days PAIN SCALE: 4/10 LOCATION: Left head TECHNIQUE: Multiple contiguous axial images were obtained of the head. Using automated exposure control and adj ustment of the mA and/or kV according to patient size, radiation dose was kept as low as reasonably a chievable to obtain optimal diagnostic quality images. DICOM format image data is available electro nically for review and comparison. FINDINGS: Focal area of increased density is again seen high in the right centrum semiovale with a small amoun t of parafalcine blood. This most likely represents benign hemorrhage however MRI would be of benefi t in 5-7 days with contrast to exclude an underlying mass. Minimal cortical hemorrhage is seen on th e left. Ventricle size is appropriate. Posterior fossa is normal. CONCLUSION: Probable benign hemorrhage evolving as expected. Followup MRI in 57 days is suggeste d. There is no significant increase in mass effect. Wes Quintanilla MD FACR on November 17, 2016 at 9:52 Board Certified Radiologist. This report was verified electronically.
[2016-11-17] MEDS ORDERED: hydrALAZINE HCL 25 MG TAB PO PRN (10:00)
--- NOTE | 2016-11-17 10:28 | PD.CONS ---
History of Present Illness Service Neurology Consult Requested By [facility] Reason for Consult fall, ich Primary Care Physician Unknown History of Present Illness 86-year-old male patient that presented to the er after having a fall. The patient is on chronic anticoagulation (coumadin) for atrial fibrillation. Imaging studies laboratory studies were obtained. The patient was noted to have an INR of 2.1, CT scan of the head revealed slight subarachnoid hemorrhage superior parietal lobe, and small subdural hemorrhage. 2 units of FFP are provided and vitamin K in the ED. Seen by nsx, non-operative management. pt poor hx. lives with his spouse. appears to have underlying cognitive impairment. PFSH Past Medical History Hx Anticoagulant Therapy: Yes (WARFARIN) Heart Rhythm Problems: Yes Cardiovascular Problems: Yes High Cholesterol: Yes Hypertension: Yes Integumentary: Yes (SKIN CA ) Thyroid Disease: Yes (hypothyroidism) Tetanus Vaccination: > 5 Years Influenza Vaccination: Yes Past Surgical History AICD: No Body Medical Devices: STERNAL WIRE FROM CABG Cardiac Surgery: Yes (CABG X 4, LEFT CAROTID ENDART. ) Eye Surgery: Yes (CATARACT L&R 2011) Joint Replacement: No Pacemaker: No Other Surgery: Yes PEG placement 12/10/2015 Social History Alcohol Use: No Tobacco Use: No Substance Use: No Allergies-Medications (Allergen,Severity, Reaction): Coded Allergies: Penicillin (Verified Allergy, Severe, CHILD GIVEN TO FAST, 11/16/16) Reported Meds & Prescriptions Review of Systems ROS Limitations: as above and admit hp PFSH Past Family Social History Past Medical History Skin cancer Hypertension Hyperlipidemia Carotid disease Hypothyroid Coronary artery disease Cataracts Dysphagia, cricopharyngeal spasms Vocal cord paralysis with palatal excision. Valvular heart disease Past Family Social History Allergies: Coded Allergies: Penicillin (Verified Allergy, Severe, CHILD GIVEN TO FAST, 11/16/16) Review of Systems All other ROS: ROS reviewed as documented in chart Past Family Social History Allergies: Coded Allergies: Penicillin (Verified Allergy, Severe, CHILD GIVEN TO FAST, 11/16/16) Active Ordered Medications Current Medications Medications (Trade) Dose Ordered Sig/Giorgi Route Start Time Stop Time Status Last Admin (NS Flush) 2 ml UNSCH PRN IV FLUSH 11/16/16 13:00 (NS Flush) 2 ml BID IV FLUSH 11/16/16 21:00 11/17/16 08:20 (Tylenol) 650 mg Q6H PRN PO 11/16/16 13:00 (Protonix Inj) 40 mg DAILY IV 11/17/16 09:00 11/17/16 08:19 Miscellaneous Information 1 [id number] XX 11/16/16 13:00 (Chlorhexidine 2% Cloth) 3 pack Taper DAILY@04 TOP 11/17/16 04:00 11/13/17 03:59 11/17/16 04:00 (Chlorhexidine 2% Cloth) 3 pack UNSCH PRN TOP 11/16/16 13:00 (Kayla-Colace) 1 tab BID PO 11/16/16 21:00 11/17/16 08:19 (Milk Of Magnesia Liq) 30 ml Q12H PRN PO 11/16/16 13:00 (Senokot) 17.2 mg Q12H PRN PO 11/16/16 13:00 (Dulcolax Supp) 10 mg DAILY PRN RECTAL 11/16/16 13:00 Lactulose 30 ml 30 ml DAILY PRN PO 11/16/16 13:00 (NS 1000 ml Inj) 1,000 ml @ 42 mls/hr [id number] IV 11/16/16 13:15 11/16/16 13:33 (Keppra) 500 mg Q12HR PO 11/16/16 21:00 11/17/16 08:20 (Lipitor) 20 mg HS G-TUBE 11/16/16 21:00 11/16/16 21:15 (Calcitriol Liq) 1 mcg DAILY G-TUBE 11/17/16 09:00 (Ferrous Sulfate Liq) 300 mg DAILY G-TUBE 11/17/16 09:00 11/17/16 08:19 (Synthroid) 88 mcg DAILY@0600 PO 11/17/16 06:00 11/17/16 06:12 (Trandate Inj) 20 mg Q4H PRN IV PUSH 11/16/16 17:00 Hydralazine HCl 20 mg 20 mg Q4H PRN IV PUSH 11/16/16 17:00 11/17/16 07:13 (Cardene Inj/NS 250 ml Inj) 260 ml @ 0 mls/hr TITRATE IV 11/16/16 17:00 (Apresoline) 25 mg Q8HR PRN PO 11/17/16 10:00 Exam I&O / VS 11/16/16 11/16/16 11/17/16 14:59 22:59 06:59 Intake Total 30 ml 717 ml Output Total 800 ml 560 ml 300 ml Balance -800 ml -530 ml 417 ml Intake Oral 0 ml 0 ml IV Total 687 ml Tube Feeding 0 ml 0 ml Other 30 ml 30 ml Output Urine Total 800 ml 560 ml 300 ml # Voids 1 1 # Bowel Movements 0 0 Vital Signs Date Time Temp Pulse Resp B/P Pulse Ox O2 Delivery O2 Flow Rate FiO2 11/17/16 08:15 97 21 11/17/16 08:00 98.4 90 13 112/56 97 11/17/16 08:00 76 11/17/16 07:00 97 Room Air 11/17/16 06:00 76 11/17/16 04:00 75 11/17/16 03:00 98.0 80 14 146/67 98 11/17/16 02:12 95 11/17/16 02:00 81 11/17/16 00:00 85 11/16/16 23:00 98.0 92 15 134/68 96 11/16/16 22:00 91 11/16/16 20:00 94 11/16/16 19:00 99.8 114 17 138/67 96 11/16/16 19:00 98 Room Air 11/16/16 18:00 91 11/16/16 17:25 98.7 91 18 173/66 95 11/16/16 16:00 94 11/16/16 16:00 98.9 94 15 175/89 96 11/16/16 16:00 98.9 94 15 175/89 96 11/16/16 15:00 98.4 100 12 171/80 98 11/16/16 15:00 92 11/16/16 15:00 97 Room Air 11/16/16 14:35 97.7 83 16 152/87 98 11/16/16 14:19 97.7 83 16 152/87 98 Room Air 11/16/16 14:04 97.8 88 16 169/81 98 Room Air 11/16/16 13:15 97.7 92 16 155/81 98 Room Air 11/16/16 11:50 97.8 90 17 172/88 98 Room Air General: No acute distress Eye: EOMI Respiratory: Non-labored respirations Neurologic: Alert Psychiatric: Cooperative Exam Comments ox 2, not to date, unable to provide much medical hx, impairmed short term memory , 0/3 words after 5 mins, dysarthric speech, eomi, vff grossly full, bandage over rt cheek, mild tremors and increased tone in ue, agarwal to gravity, sensory not reliable but withdraws to pin in all 4 ext, msr trace, no clonus, planterflexor, gait not assessed 2/2 fall risk Review/Management Diagnosis/Plan: (1) Traumatic subarachnoid hemorrhage Plan: 2/2 fall with inr of 2.1. thus component of anti-coagulant associated ICH recs off oac may not be advisable to restart oac and may need to be on aspirin only once cleared by nsx consider of watchman device by sewer and drain technician in the future for cardioembolic protection in place of oac p.t. will need outpatient f/u with pcp/cardiology and us (2) Gait disorder Plan: likely multifactorial: vestibular dysfunction, cognition, arthritis, low muscle bulk however, may also have multiple system atrophy affecting his gait and swallowing ability recs p.t. outpatient assessments (3) Atrial fibrillation Plan: on coumadin (4) Chronic anticoagulation (5) Hyponatremia Plan: resolved Problem Qualifiers (1) Atrial fibrillation: Qualified Code: I48.91 - Atrial fibrillation, unspecified type Benedicto Downey MD Nov 17, 2016 10:28
--- NOTE | 2016-11-17 17:39 | HHI.PR ---
Objective Objective Results - Vital Signs Date Time Temp Pulse Resp B/P Pulse Ox O2 Delivery O2 Flow Rate FiO2 11/17/16 16:03 97.3 88 17 110/65 96 11/17/16 12:04 98.0 82 17 144/65 95 11/17/16 09:45 97.3 85 17 129/59 97 11/17/16 08:15 97 21 11/17/16 08:00 98.4 90 13 112/56 97 11/17/16 08:00 76 11/17/16 07:00 97 Room Air 11/17/16 06:00 76 11/17/16 04:00 75 11/17/16 03:00 98.0 80 14 146/67 98 11/17/16 02:12 95 11/17/16 02:00 81 11/17/16 00:00 85 11/16/16 23:00 98.0 92 15 134/68 96 11/16/16 22:00 91 11/16/16 20:00 94 11/16/16 19:00 99.8 114 17 138/67 96 11/16/16 19:00 98 Room Air 11/16/16 18:00 91 I/O 11/16/16 11/16/16 11/16/16 11/17/16 11/17/16 11/17/16 07:00 15:00 23:00 07:00 15:00 23:00 Intake Total 30 ml 717 ml Output Total 800 ml 560 ml 300 ml 100 ml Balance -800 ml -530 ml 417 ml -100 ml Intake Oral 0 ml 0 ml IV Total 687 ml Tube Feeding 0 ml 0 ml Other 30 ml 30 ml Output Urine Total 800 ml 560 ml 300 ml 100 ml # Voids 1 1 2 # Bowel Movements 0 0 0 Result Diagram: 11/17/16 0450 11/17/16 0430 Other Results Laboratory Tests Test 11/16/16 11/17/16 11/17/16 20:43 04:30 04:50 Prothrombin Time 15.0 13.3 Prothromb Time International 1.3 1.2 Ratio Sodium Level 138 Potassium Level 4.2 Chloride Level 100 Carbon Dioxide Level 28.7 Anion Gap 9 Blood Urea Nitrogen 25 Creatinine 1.00 Estimat Glomerular Filtration 71 Rate Random Glucose 117 Calcium Level 8.8 Phosphorus Level 2.9 Magnesium Level 2.2 Vitamin B12 Level 974 White Blood Count 9.6 Red Blood Count 3.75 Hemoglobin 13.9 Hematocrit 39.1 Mean Corpuscular Volume 104.1 Mean Corpuscular Hemoglobin 37.1 Mean Corpuscular Hemoglobin 35.7 Concent Red Cell Distribution Width 13.1 Platelet Count 118 Mean Platelet Volume 9.2 Hematology Comments Physical Exam Physical Exam PHYSICAL EXAMINATION GENERAL: This is a well-developed, well-nourished male who appears to be in no acute distress. He is alert and awake, []. HEAD: Normocephalic without any lesion or mass noted. Facial features appear symmetric. EYES: Perrla, Normal eye movement, [] Icterus. [] Conj congestion. OROPHARYNGEAL: Oropharynx without erythema or edema. MOUTH/THROAT: Tongue midline []. Buccal mucosa is moist []. NECK: Supple. No nuchal rigidity or lymphadenopathy. Trachea midline without deviation. Thyroid not palpable, no bruits appreciated. CARDIAC: Regular rhythm, regular rate, S1 and S2 are heard. Murmur []; no gallops or rubs. LUNGS: Clear to auscultation bilaterally. [] wheeze, [] rhonchi or [] rale. No use of accessory muscles on inspiration or expiration. ABDOMEN: Soft, nontender, no organomegaly or masses. Bowel sounds are heard in all four quadrants. No rebound. No guarding. EXTREMITIES: [] edema. Pulses equal bilateral. [] cyanosis. NEUROLOGICAL: Patient mood and affect appropriate. Cranial nerves II through XII grossly intact. Muscle strength 5/5 in the upper and lower extremities bilaterally. Deep tendon reflexes are 2+ in the upper and lower extremities bilaterally. SKIN:Warm and moist PSYCH: Mood and affect appropriate A/P Assessment and Plan patient seen and examined please refer to full consult dictated for details 86 yr old male from home o coumadin for A fib, had a fall , found to have SAH, SDH. recieved2 units FFp and Vit k no NSR intervention high risk for OAC per neurology, ok to start ASA when cleared by NSR\ PT eval contineu current care no family at bedside Reva Santamaria MD Nov 17, 2016 17:39
--- NOTE | 2016-11-17 17:51 | MB ---
cc: GAGAN CUNNINGHAM MD DATE OF CONSULTATION 11/17/2016 DATE OF 1930 REASON FOR CONSULTATION Medical management. TRAVEL HISTORY Travel in the last 30 days none. HISTORY OF PRESENT ILLNESS This is a pleasant 86-year-old white male with a history of dementia and multi comorbidities who had a mechanical fall at home. The patient was on tile floor according to his 's and slipped, lost his balance when his walker came out from under him. She was in the home at that time but the fall itself was unwitnessed. The patient was brought to the emergency room for further evaluation. He was found to have an intracranial hemorrhage, slight subarachnoid with a tiny adjacent subdural hematoma. He was admitted to the ICU for further evaluation. Small dressing noted on the right cheek, the patient had a recent basal scan cancer removed. Sutures are intact. Dressing is clean, dry and intact. Chief complaint noted from the patient is his left shoulder pain. He does note that when he fell, he fell on the left shoulder. It is tender to touch and he is guarding up next to his side. MEDICAL HISTORY The patient takes Coumadin, gastroesophageal reflux disease, hyperlipidemia, cardiovascular disease, atrial fibrillation, dementia, hypothyroidism, debility, arthritis. Skin cancer, right cheek, hypothyroidism. PAST SURGICAL HISTORY CABG four-vessel, left carotid endarterectomy, cataract surgery, tonsillectomy, uvula surgery, PEG tube placement. ALLERGIES PENICILLIN. MEDICATIONS Reported: 1. Calcium. 2. Levofloxacin. 3. Iron tablets. 4. Coumadin. 5. Atorvastatin. 6. Multivitamins. SOCIAL HISTORY The patient is , currently lives with his 's. No known tobacco, alcohol or illicit drug use. REVIEW OF SYSTEMS The patient is a poor historian. History of dementia. Most of the information was obtained from his but he was able to answer simple symptom questions. He denied any chest pain, no shortness of breath. Other systems negative or unremarkable to my examination/ PHYSICAL EXAMINATION VITAL SIGNS: Temperature was 98.4, pulse 90, respirations 17, blood pressure 129/59 and O2 sat 97, currently on room air. GENERAL: The patient is awake, answers simple questions. Speech is very slow. He is resting in bed. No acute shortness of breath. is at his side. SKIN: Skin is pale but warm and dry. HEENT: He is normocephalic, recent trauma with fall and bleed. He has a small knot on the right side of his head and a small area on the backside of his, no bleeding noted. No scleral icterus. Mucous membranes are slightly dry. NECK: Neck is supple. CARDIOVASCULAR: S1-S2, rhythm is regular. There is no edema. Extremities are warm. RESPIRATORY: Volumes are low to medium but no wheezes, rales or rhonchi heard. ABDOMEN: Round, soft, nontender. Bowel sounds are soft. PEG tube left mid abdomen, no acute drainage noted around site. MUSCULOSKELETAL: Moves on command. Generalized weakness but does move his extremities. NEUROLOGICALLY: He is awake, conversational only when spoke to and only gives very simple, short, non-detailed answer. History of dementia. SKIN: Pale, warm and dry. DIAGNOSTIC DATA WBC count 9.6, RBC 3.79, hemoglobin 13.9, hematocrit 39.1, platelet count 118, was 129 on admission of 11/16. PT/INR on admission 2.1, now 1.2. Chemistries, sodium 138, potassium 4.2, chloride 100, carbon dioxide 28.7, amnion gap 9, BUN 25, creatinine 1, GFR 71, random glucose 117. IMAGING STUDIES Shows recent head CT on 11/17 to have probable benign hemorrhage, evolving as expected. Suggested MRI in 57 days. There is a significant increase in mass effect. ASSESSMENT/PLAN Fall with traumatic subarachnoid hemorrhage right high convexity superior parietal lobe with a tiny adjacent subdural hematoma. Altered mental status which has currently resolved back to his baseline. Atrial fibrillation with chronic coagulation of Coumadin. Dementia, with cachexia, dysphasia and generalized weakness, debility. Our plan is to monitor medical management. Patient has been transferred out of the intensive care setting. He is resting comfortably in a private room. We will start his tube feed back. He currently uses 6 cans a day of Jevity according to his . While in the hospital will start him back on 55 cc an hour and work came back up to his bolus feeds. Nutritional consult has been done. PEG tube will need dressing changes and psych evaluation daily and p.r.n. with their assessments. The patient will need to start increasing his activity again. Will have PT and OT evaluate and treat. The patient has labetalol and hydralazine p.r.n. if needed for any blood pressure problems. Medications have been reconciled as warranted. We will continue to monitor his needs based on symptoms. Neurology has been seen for their expert opinion. Neurosurgery is also seen for their expert opinion. We appreciate the input. The patient's and the patient states that he has a living will. He states that he wants full aggressive care but if his heart stops or his breathing stops he does not want to be resuscitated. This was discussed in detail with and at bedside. I will document my findings. The patient will be DNR status, but otherwise will be full code, full aggressive care and we will follow. Thank you very much for this consultation. Dictated by JUSTO Perkins MD NETTIE Guillory/VICK /5:07 PM /5:26 PM
--- NOTE | 2016-11-17 19:27 | EKG ---
Date Performed: 11/16/2016 Time Performed: 14:14:18 PTAGE: 86 years EKG: Sinus rhythm WITH SINUS ARRHYTHMIA WITH FIRST DEGREE AV BLOCK ABNORMAL ECG Compared to PREVIOUS TRACING , the marked baseline artifact made interpretation difficult. There appe ars to be a prolonged WI interval in that tracing as well. PREVIOUS TRACIN01/05/2016 07.08 DOCTOR: Will Olivier Interpretating Date/Time 11/17/2016 19:25:57
[2016-11-17] MEDS: ATORVASTATIN 20 MG TAB G-TUBE SCH (20:56)
[2016-11-18] VITALS (8 sets, daily range): BP systolic 124–197; BP diastolic 69–103; PULSE 76–118; RESP 17–24; TEMP 97.5–98.8; O2SAT 97–98
[2016-11-18] MEDS: CHLORHEXIDINE GLUCONATE 2 % 1 PACK (2 CLOTHS) TOP SCH (04:00)
[2016-11-18] MEDS: LEVOTHYROXINE SODIUM 88 MCG TAB PO SCH (06:39)
[2016-11-18] MEDS: PANTOPRAZOLE SODIUM 40 MG VIAL IV SCH (09:33)
[2016-11-18] MEDS: FERROUS SULFATE 300 MG /5ML UDC G-TUBE SCH (09:35)
[2016-11-18] MEDS: DOCUSATE SODIUM 50 MG/SENNA 8.6 MG TAB PO SCH ×2 (09:35→22:10)
[2016-11-18] MEDS: levETIRAcetam 500 MG TAB PO SCH ×2 (09:35→22:09)
--- NOTE | 2016-11-18 11:44 | HHI.NSPN ---
History Interval History 86-year-old gentleman with mild dementia status post lip and fall accident at home with resultant closed head injury and a small amount of traumatic right parietal subarachnoid hemorrhage and parafalcine subdural. He is awake and alert with no complaints of headache or nausea. No complaints of weakness or numbness in the extremities. 11/18: Patient remains awake and alert without complaints of headache. Exam Results Vital Signs Date Time Temp Pulse Resp B/P Pulse Ox O2 Delivery O2 Flow Rate FiO2 11/18/16 08:02 97.7 97 17 126/87 98 11/17/16 08:15 21 11/17/16 07:00 Room Air Intake and Output 11/17/16 11/17/16 11/18/16 08:00 16:00 00:00 Intake Total 717 ml Output Total 300 ml 100 ml 250 ml Balance 417 ml -100 ml -250 ml Physical Examination Resting comfortably in bed. Easily arousable. Neurological: Patient is oriented to himself and his age. He remains disoriented to the date and year but this is his baseline status due to dementia. Speech is intact. Motor function 5 over 5 upper and lower extremities. Sensory examination intact. Repeat CT scan shows stable right parasagittal subarachnoid and contusional hemorrhage. Small amount of parafalcine subdural which is also stable. Lab, Micro, Other Results Last Impressions Head CT 11/17/16829 Signed Impressions: Service Date/Time: Thursday, November 17, 2016 09:07 - CONCLUSION: Probable benign hemorrhage evolving as expected. Followup MRI in 57 days is suggested. There is no significant increase in mass effect. Wes Quintanilla MD FACR Shoulder X-Ray 11/16/16831 Signed Impressions: Service Date/Time: Wednesday, November 16, 2016 09:14 - CONCLUSION: Unremarkable study. Debbi Galeas MD Lumbar Spine X-Ray 11/16/16831 Signed Impressions: Service Date/Time: Wednesday, November 16, 2016 09:13 - CONCLUSION: Chronic changes. Debbi Galeas MD Foot X-Ray 11/16/16831 Signed Impressions: Service Date/Time: Wednesday, November 16, 2016 09:17 - CONCLUSION: Chronic changes and no evidence for acute fracture. Debbi Galeas MD Cervical Spine CT 11/16/16831 Signed Impressions: Service Date/Time: Wednesday, November 16, 2016 10:04 - CONCLUSION: Degenerative changes as described above without fracture. Wes Quintanilla MD FACR Medical Decision Making Impression and Plan Status post closed head injury with traumatic subarachnoid and subdural hemorrhage. Stable neurological and CT examinations. Plan: No plans for surgical intervention. Patient may be mobilized as tolerated. Discharge when stable. May resume Coumadin in 1 week. Marlon Muniz MD Nov 18, 2016 11:44
--- NOTE | 2016-11-18 12:10 | HHI.PR ---
Subjective Remarks Resting in bed awake responds to verbal stimuli Feedings 55 cc an hour tolerating without residual Afebrile Left shoulder pain sore to touch (Alexia Desai) Objective Objective Results - Vital Signs Date Time Temp Pulse Resp B/P Pulse Ox O2 Delivery O2 Flow Rate FiO2 11/18/16 08:02 97.7 97 17 126/87 98 11/18/16 06:33 98.8 81 18 140/74 97 11/18/16 00:00 97.5 76 18 136/69 97 11/17/16 20:00 98.5 91 16 146/68 97 11/17/16 19:00 89 11/17/16 16:03 97.3 88 17 110/65 96 11/17/16 12:04 98.0 82 17 144/65 95 I/O 11/17/16 11/17/16 11/17/16 11/18/16 11/18/16 11/18/16 07:00 15:00 23:00 07:00 15:00 23:00 Intake Total 717 ml Output Total 300 ml 100 ml 250 ml Balance 417 ml -100 ml -250 ml Intake Oral 0 ml IV Total 687 ml Tube Feeding 0 ml Other 30 ml Output Urine Total 300 ml 100 ml 250 ml # Voids 1 2 # Bowel Movements 0 0 (Alexia Desai) Result Diagram: 11/17/16 0450 11/17/16 0430 ROS General: Fatigue, Weakness (generalized but getting close to be in back to his baseline), Other (10 point ROS done positives noted) GI: Other (peg tube with feedings resumed yesterday no nausea vomiting) ( Alexia Desai) Physical Exam Physical Exam PHYSICAL EXAMINATION GENERAL: This is an elderly male who appears to be in no acute distress. He is alert and awake, HEAD: Normocephalic without any lesion or mass noted. Facial features appear symmetric. OROPHARYNGEAL: Oropharynx without erythema or edema. NECK: Supple. No nuchal rigidity or lymphadenopathy. Trachea midline without deviation. CARDIAC: Regular rhythm, regular rate, S1 and S2 are heard. LUNGS: Clear to auscultation bilaterally. ABDOMEN: Soft, nontender, no organomegaly or masses. Bowel sounds are heard in all four quadrants. No rebound. No guarding. EXTREMITIES: no edema. Pulses equal bilateral. NEUROLOGICAL: Patient mood and affect appropriate for his baseline. SKIN:Warm and moist (Alexia Desai) A/P Assessment and Plan Fall with traumatic subarachnoid hemorrhage right high convexity superior parietal lobe with a tiny adjacent subdural hematoma. Recheck labs in the morning if patient is still here CODE STATUS no intubation Altered mental status resolved back to his baseline. Feedings at 55cc/hr, tolerating well. Responds to verbal stimuli. Atrial fibrillation chronic coagulation of Coumadin. Seen and cleared per Neurosurgeon. May restart Coumadin X 1 week. Dementia, with cachexia, dysphasia and generalized weakness, debility getting back to his baseline, up in chair if pt. can stand. PT eval and treat. Recommendations patient may benefit from rehabilitation. Left shoulder still sore from fall, could affect his balance Discussed with nurse, activity up in chair today if patient can assist Discussed with Dr. santamaria, seen on her behalf Discharge planning cleared per neurosurgeon, a restart Coumadin in one week, discharge pending, possible rehabilitation (Alexia Desai) Assessment and Plan patient seen and examined continue current care at bedside Neurology recommends: No OAC, asa when ok with NSR and outpatient follow up [facility] Cardiology for watchman device NSR recommendation: ok to start Coumadin in 1 week patient is at high risk of falls, agree with neuro rec of keeping off OAC PT eval: needs rehab (Reva Santamaria MD) Alexia Desai Nov 18, 2016 12:10 Reva Santamaria MD Nov 18, 2016 15:19
--- NOTE | 2016-11-18 15:17 | HHI.PR ---
Review/Management Diagnosis/Plan: (1) Traumatic subarachnoid hemorrhage Plan: 2/2 fall with inr of 2.1. thus component of anti-coagulant associated ICH recs neuro stable d/w pt and spouse at bedside she states he has alot of imbalance and uses a walker at home may not be advisable to restart oac and may need to be on aspirin only once cleared by nsx consider of watchman device by clinical analyst in the future for cardioembolic protection in place of oac p.t. will need outpatient f/u with pcp/cardiology and us (2) Gait disorder Plan: likely multifactorial: vestibular dysfunction, cognition, arthritis, low muscle bulk however, may also have multiple system atrophy affecting his gait and swallowing ability recs p.t. outpatient assessments (3) Atrial fibrillation Plan: on coumadin (4) Chronic anticoagulation (5) Hyponatremia Plan: resolved Subjective Subjective Comments No acute events reported No headache No chest pain No dyspnea Active Medications Current Medications Medications (Trade) Dose Ordered Sig/Giorgi Route Start Time Stop Time Status Last Admin (NS Flush) 2 ml UNSCH PRN IV FLUSH 11/16/16 13:00 (NS Flush) 2 ml BID IV FLUSH 11/16/16 21:00 11/17/16 08:20 (Tylenol) 650 mg Q6H PRN PO 11/16/16 13:00 (Protonix Inj) 40 mg DAILY IV 11/17/16 09:00 11/18/16 09:33 Miscellaneous Information 1 Q361D XX 11/16/16 13:00 (Chlorhexidine 2% Cloth) 3 pack Taper DAILY@04 TOP 11/17/16 04:00 11/13/17 03:59 11/17/16 04:00 (Chlorhexidine 2% Cloth) 3 pack UNSCH PRN TOP 11/16/16 13:00 (Kayla-Colace) 1 tab BID PO 11/16/16 21:00 11/18/16 09:35 (Milk Of Magnesia Liq) 30 ml Q12H PRN PO 11/16/16 13:00 (Senokot) 17.2 mg Q12H PRN PO 11/16/16 13:00 (Dulcolax Supp) 10 mg DAILY PRN RECTAL 11/16/16 13:00 Lactulose 30 ml 30 ml DAILY PRN PO 11/16/16 13:00 (NS 1000 ml Inj) 1,000 ml @ 42 mls/hr [id number] IV 11/16/16 13:15 11/16/16 13:33 (Keppra) 500 mg Q12HR PO 11/16/16 21:00 11/18/16 09:35 (Lipitor) 20 mg HS G-TUBE 11/16/16 21:00 11/17/16 20:56 (Calcitriol Liq) 1 mcg DAILY G-TUBE 11/17/16 09:00 (Ferrous Sulfate Liq) 300 mg DAILY G-TUBE 11/17/16 09:00 11/18/16 09:35 (Synthroid) 88 mcg DAILY@0600 PO 11/17/16 06:00 11/18/16 06:39 (Trandate Inj) 20 mg Q4H PRN IV PUSH 11/16/16 17:00 Hydralazine HCl 20 mg 20 mg Q4H PRN IV PUSH 11/16/16 17:00 11/17/16 07:13 (Cardene Inj/NS 250 ml Inj) 260 ml @ 0 mls/hr TITRATE IV 11/16/16 17:00 (Apresoline) 25 mg Q8HR PRN PO 11/17/16 10:00 Allergies Allergies Coded Allergies Penicillin (Verified Allergy, Severe, CHILD GIVEN TO FAST, 11/16/16) Review of Systems All other ROS: ROS reviewed as documented in chart Exam I&O / VS 11/17/16 11/17/16 11/18/16 15:00 23:00 07:00 Output Total 100 ml 250 ml Balance -100 ml -250 ml Output Urine Total 100 ml 250 ml # Voids 2 # Bowel Movements 0 Vital Signs Date Time Temp Pulse Resp B/P Pulse Ox O2 Delivery O2 Flow Rate FiO2 11/18/16 12:02 97.7 88 17 139/79 97 11/18/16 08:02 97.7 97 17 126/87 98 11/18/16 07:00 81 11/18/16 06:33 98.8 81 18 140/74 97 11/18/16 00:00 97.5 76 18 136/69 97 11/17/16 20:00 98.5 91 16 146/68 97 11/17/16 19:00 89 11/17/16 16:03 97.3 88 17 110/65 96 General: No acute distress Eye: EOMI Respiratory: Non-labored respirations Neurologic: Alert Psychiatric: Cooperative Exam Comments ox 2, not to date, follows, dysarthric speech, eomi, vff grossly full, bandage over rt cheek, mild tremors and increased tone in ue, agarwal to gravity, sensory not reliable but withdraws to pin in all 4 ext, msr trace, no clonus, planterflexor, gait not assessed 2/2 fall risk Problem Qualifiers (1) Atrial fibrillation: Qualified Code: I48.91 - Atrial fibrillation, unspecified type Benedicto Downey MD Nov 18, 2016 15:17
[2016-11-18 21:03] LABS: MEAN CORPUSCULAR HGB CONC 36.3 % (32.0-36.0)
[2016-11-18] MEDS: ATORVASTATIN 20 MG TAB G-TUBE SCH (22:10)
[2016-11-18] MEDS: SODIUM CHLORIDE 0.9% FLUSH 10 ML FLUSH IV FLUSH SCH (22:11)
[2016-11-19] VITALS (9 sets, daily range): BP systolic 125–172; BP diastolic 59–81; PULSE 62–112; RESP 16–24; TEMP 97.6–99.9; O2SAT 93–99
[2016-11-19] MEDS: CHLORHEXIDINE GLUCONATE 2 % 1 PACK (2 CLOTHS) TOP SCH (04:00)
[2016-11-19] MEDS: LEVOTHYROXINE SODIUM 88 MCG TAB PO SCH (05:41)
--- NOTE | 2016-11-19 07:17 | HHI.PR ---
Review/Management Diagnosis/Plan: (1) Traumatic subarachnoid hemorrhage Plan: 2/2 fall with inr of 2.1. thus component of anti-coagulant associated ICH recs inr 1.2 rehab/home with p.t. as per p.t. recs bp control- elevated this am may not be advisable to restart oac and may need to be on aspirin only once cleared by nsx consider of watchman device by superintendent police in the future for cardioembolic protection in place of oac p.t. will need outpatient f/u with pcp/cardiology and us (2) Gait disorder Plan: likely multifactorial: vestibular dysfunction, cognition, arthritis, low muscle bulk however, may also have multiple system atrophy affecting his gait and swallowing ability recs p.t. outpatient assessments (3) Atrial fibrillation Plan: on coumadin (4) Chronic anticoagulation (5) Hyponatremia Plan: resolved Subjective Subjective Comments No acute events reported No headache No chest pain No dyspnea Active Medications Current Medications Medications (Trade) Dose Ordered Sig/Giorgi Route Start Time Stop Time Status Last Admin (NS Flush) 2 ml UNSCH PRN IV FLUSH 11/16/16 13:00 (NS Flush) 2 ml BID IV FLUSH 11/16/16 21:00 11/18/16 22:11 (Tylenol) 650 mg Q6H PRN PO 11/16/16 13:00 (Protonix Inj) 40 mg DAILY IV 11/17/16 09:00 11/18/16 09:33 Miscellaneous Information 1 Q361D XX 11/16/16 13:00 (Chlorhexidine 2% Cloth) 3 pack Taper DAILY@04 TOP 11/17/16 04:00 11/13/17 03:59 11/17/16 04:00 (Chlorhexidine 2% Cloth) 3 pack UNSCH PRN TOP 11/16/16 13:00 (Kayla-Colace) 1 tab BID PO 11/16/16 21:00 11/18/16 22:10 (Milk Of Magnesia Liq) 30 ml Q12H PRN PO 11/16/16 13:00 (Senokot) 17.2 mg Q12H PRN PO 11/16/16 13:00 (Dulcolax Supp) 10 mg DAILY PRN RECTAL 11/16/16 13:00 Lactulose 30 ml 30 ml DAILY PRN PO 11/16/16 13:00 (NS 1000 ml Inj) 1,000 ml @ 42 mls/hr [id number] IV 11/16/16 13:15 11/16/16 13:33 (Keppra) 500 mg Q12HR PO 11/16/16 21:00 11/18/16 22:09 (Lipitor) 20 mg HS G-TUBE 11/16/16 21:00 11/18/16 22:10 (Calcitriol Liq) 1 mcg DAILY G-TUBE 11/17/16 09:00 (Ferrous Sulfate Liq) 300 mg DAILY G-TUBE 11/17/16 09:00 11/18/16 09:35 (Synthroid) 88 mcg DAILY@0600 PO 11/17/16 06:00 11/19/16 05:41 (Trandate Inj) 20 mg Q4H PRN IV PUSH 11/16/16 17:00 Hydralazine HCl 20 mg 20 mg Q4H PRN IV PUSH 11/16/16 17:00 11/17/16 07:13 (Cardene Inj/NS 250 ml Inj) 260 ml @ 0 mls/hr TITRATE IV 11/16/16 17:00 (Apresoline) 25 mg Q8HR PRN PO 11/17/16 10:00 11/18/16 22:10 Allergies Allergies Coded Allergies Penicillin (Verified Allergy, Severe, CHILD GIVEN TO FAST, 11/16/16) Review of Systems All other ROS: ROS reviewed as documented in chart Exam I&O / VS 11/18/16 11/18/16 11/19/16 15:00 23:00 07:00 Output Total 150 ml Balance -150 ml Output Urine Total 150 ml # Voids 2 # Bowel Movements 0 Vital Signs Date Time Temp Pulse Resp B/P Pulse Ox O2 Delivery O2 Flow Rate FiO2 11/19/16 00:00 99.2 112 24 172/81 96 11/18/16 20:00 98.3 118 24 197/103 98 11/18/16 19:43 98 21 11/18/16 16:00 97.6 92 17 124/72 97 11/18/16 12:02 97.7 88 17 139/79 97 11/18/16 08:02 97.7 97 17 126/87 98 General: No acute distress Eye: EOMI Respiratory: Non-labored respirations Neurologic: Alert Psychiatric: Cooperative Exam Comments alert, ox 1-2, not to date, follows, dysarthric speech, eomi, vff grossly full, bandage over rt cheek, no tremors, increased tone in ue, agarwal to gravity, sensory not reliable but withdraws to pin in all 4 ext, msr trace, no clonus, planterflexor, gait not assessed 2/2 fall risk Problem Qualifiers (1) Atrial fibrillation: Qualified Code: I48.91 - Atrial fibrillation, unspecified type Benedicto Downey MD Nov 19, 2016 07:17
[2016-11-19 10:03] LABS: HEMATOCRIT 38.6 % (39.0-51.0); MEAN CORPUSCULAR HEMOGLOBIN 39.2 PG (27.0-34.0); PLATELET COUNT 132 TH/MM3 (150-450); RED BLOOD COUNT 3.57 MIL/MM3 (4.50-5.90); RED CELL DISTRIBUTION WIDTH 13.1 % (11.6-17.2); WHITE BLOOD COUNT 14.5 TH/MM3 (4.0-11.0)
[2016-11-19 10:06] LABS: REVIEW FLAG FINAL
[2016-11-19] MEDS: DOCUSATE SODIUM 50 MG/SENNA 8.6 MG TAB PO SCH ×3 (10:24→21:49)
[2016-11-19] MEDS: FERROUS SULFATE 300 MG /5ML UDC G-TUBE SCH (10:24)
[2016-11-19] MEDS: levETIRAcetam 500 MG TAB PO SCH ×2 (10:24→21:45)
[2016-11-19 10:25] LABS: BICARBONATE 27.7 MEQ/L (21.0-32.0); POTASSIUM 3.5 MEQ/L (3.5-5.1)
[2016-11-19] MEDS: PANTOPRAZOLE SODIUM 40 MG VIAL IV SCH (10:25)
--- NOTE | 2016-11-19 12:34 | HHI.PR ---
Subjective Subjective Remarks awake, at times difficult to understand, demented oriented to self, , place pleasant follows simple commands tolerating tube feedings well, per he has gained weight and has been living at home and doing fairly well until recently low grade fever x 1 99.9 difficult to obtain ROS Review of Systems Constitutional Constitutional Remarks 12 point ros difficult to obtain Vitals/Results Intake & Output 11/18/16 11/18/16 11/19/16 15:00 23:00 07:00 Intake Total 966 ml 1106 ml Output Total 150 ml Balance 816 ml 1106 ml IV Total 310 ml 510 ml Tube Feeding 556 ml 446 ml Other 100 ml 150 ml Output Urine Total 150 ml # Voids 2 # Bowel Movements 0 1 Vital Signs Vital Signs Date Time Temp Pulse Resp B/P Pulse Ox O2 Delivery O2 Flow Rate FiO2 11/19/16 08:00 99.9 78 20 150/72 98 11/19/16 04:00 97.6 78 18 165/78 97 11/19/16 00:00 99.2 112 24 172/81 96 11/18/16 20:00 98.3 118 24 197/103 98 11/18/16 19:43 98 21 11/18/16 16:00 97.6 92 17 124/72 97 CBC/BMP: 11/19/16 0844 11/19/16 0844 Lab Results Laboratory Tests Test 11/19/16 08:44 White Blood Count 14.5 TH/MM3 Red Blood Count 3.57 MIL/MM3 Hemoglobin 14.0 GM/DL Hematocrit 38.6 % Mean Corpuscular Volume 108.0 FL Mean Corpuscular Hemoglobin 39.2 PG Mean Corpuscular Hemoglobin 36.3 % Concent Red Cell Distribution Width 13.1 % Platelet Count 132 TH/MM3 Mean Platelet Volume 9.0 FL Sodium Level 140 MEQ/L Potassium Level 3.5 MEQ/L Chloride Level 104 MEQ/L Carbon Dioxide Level 27.7 MEQ/L Anion Gap 8 MEQ/L Blood Urea Nitrogen 30 MG/DL Creatinine 1.08 MG/DL Estimat Glomerular Filtration 65 ML/MIN Rate Random Glucose 165 MG/DL Calcium Level 8.9 MG/DL Physical Exam General General Appearance: Well Developed, No Acute Distress, Comfortable Eyes Eye Exam: Pupils Equal, Pupils Reactive Ears & Nose Ears & Nose Exam: Nasal Mucosa F[place] Throat Throat Exam: Oral Mucosa F[place]ch & Moist Neck Neck Exam: Neck Supple, Trachea Midline Pulmonary Resp Exam: Clear Bilaterally Cardiology CV Exam: Regular, Murmur Gastrointestinal/Abdomen GI Exam: Soft, Non-Tender, Non-Distended Musculoskeletal MS Exam: Joints Intact Integumentary Skin Exam: Warm, Dry Extremeties Extremities Exam: No Edema, Pedal Pulses Palpable Neurologic Neuro Exam: Awake, Moving All Extremities, No Focal Deficits VTE Prophylaxis VTE Prophylaxis Device: SCDs Assessment/Plan Problem List: (1) Traumatic subarachnoid hemorrhage (2) SAH (subarachnoid hemorrhage) (3) Gait disorder (4) Chronic anticoagulation (5) Atrial fibrillation (6) Dementia (7) Weakness (8) Thrombocytopenia Assessment/Plan S/P fall at home with resultant closed head injury and a small amount of traumatic right parietal subarachnoid hemorrhage and parafalcine subdural pt. on coumadin, on hold, received FFP non surgical management neurosurgery following, ok to resume Coumadin one week per their recommendation Seizure precautions continue Keppra 500 mg po bid neuro checks BP control, Hydralazine PRN. Has been stable Appreciate neuro input, per recommendations- may not be advisable to restart oac and may need to be on aspirin only once cleared by nsx. Recommends to consider watchman device by radiology practitioner assistant in the future for cardioembolic protection in place of oac Dementia hx dysphagia, cachexia, has peg tube continue tube feedings, tolerating well PT daily and OOB with assistance Afib, stable Coumadin on hold consider Watchman eval as OP Poss ASA can be started in one week Leukocytosis, low grade fever x 1, 99.9 UA/UC now CBC in am Thrombocytopenia Platelets stable, trending up Monitor for bleeding CM for dc planning, SNF placement D/W pt's , agreeable with holding on Coumadin, understands risks associated with anticoagulation. Okay with rehabilitation placement DNR status Poss dc tomorrow if clear by neurosurgery and neurology D/W RN D/W CM D/W pt's This patient was seen by myself and Dr. Turner, this note is written on his behalf Problem Qualifiers (1) Atrial fibrillation: Qualified Code: I48.91 - Atrial fibrillation, unspecified type (2) Dementia: Qualified Code: F03.90 - Dementia without behavioral disturbance, unspecified dementia type Josee Cevallos [facility] Nov 19, 2016 12:34
--- NOTE | 2016-11-19 16:29 | HHI.NSPN ---
Note Status Status: Progress Note Interval History Interval History 86-year-old gentleman with mild dementia status post lip and fall accident at home with resultant closed head injury and a small amount of traumatic right parietal subarachnoid hemorrhage and parafalcine subdural. He is awake and alert with no complaints of headache or nausea. No complaints of weakness or numbness in the extremities. 11/18: Patient remains awake and alert without complaints of headache. 11/19: being cleaned by medical charge entry specialist. Remains alert, confused, calling for his . Labs, Micro, & Vital Signs Results Date Time Temp Pulse Resp B/P Pulse Ox O2 Delivery O2 Flow Rate FiO2 11/19/16 16:00 99.1 81 20 125/61 98 11/19/16 13:43 97.6 62 20 125/59 96 11/19/16 12:00 97.7 78 20 157/72 99 11/19/16 09:49 96 21 11/19/16 08:00 99.9 78 20 150/72 98 11/19/16 04:00 97.6 78 18 165/78 97 11/19/16 00:00 99.2 112 24 172/81 96 11/18/16 20:00 98.3 118 24 197/103 98 11/18/16 19:43 98 21 11/19/16 06:59 Intake Total 2072 ml Output Total 150 ml Balance 1922 ml Constitutional Vital Signs Date Time Temp Pulse Resp B/P Pulse Ox O2 Delivery O2 Flow Rate FiO2 11/19/16 16:00 99.1 81 20 125/61 98 11/19/16 13:43 97.6 62 20 125/59 96 11/19/16 12:00 97.7 78 20 157/72 99 11/19/16 09:49 96 21 11/19/16 08:00 99.9 78 20 150/72 98 11/19/16 04:00 97.6 78 18 165/78 97 11/19/16 00:00 99.2 112 24 172/81 96 11/18/16 20:00 98.3 118 24 197/103 98 11/18/16 19:43 98 21 11/19/16 06:59 Intake Total 2072 ml Output Total 150 ml Balance 1922 ml Review of Systems/Exam Exam Awake, mildly confused. Underlying baseline dementia. CN: pupils equal, facial motor symmetric Motor: moves all four extremities Medications Current Medications Current Medications Medications (Trade) Dose Ordered Sig/Giorgi Route PRN Reason Start Time Stop Time Status Last Admin Dose Admin Sodium Chloride (NS Flush) 2 ml UNSCH PRN IV FLUSH FLUSH AFTER USING IV ACCESS 11/16/16 13:00 Sodium Chloride (NS Flush) 2 ml BID IV FLUSH 11/16/16 21:00 11/18/16 22:11 Acetaminophen (Tylenol) 650 mg Q6H PRN PO PAIN 1-10 AND/OR FEVER >101F 11/16/16 13:00 Pantoprazole Sodium (Protonix Inj) 40 mg DAILY IV 11/17/16 09:00 11/19/16 10:25 Miscellaneous Information 1 Q361D XX 11/16/16 13:00 Chlorhexidine Gluconate (Chlorhexidine 2% Cloth) 3 pack Taper DAILY@04 TOP 11/17/16 04:00 11/13/17 03:59 11/17/16 04:00 Chlorhexidine Gluconate (Chlorhexidine 2% Cloth) 3 pack UNSCH PRN TOP HYGIENIC CARE 11/16/16 13:00 Senna/Docusate Sodium (Kayla-Colace) 1 tab BID PO 11/16/16 21:00 11/19/16 10:24 Magnesium Hydroxide (Milk Of Magnesia Liq) 30 ml Q12H PRN PO MILD - MODERATE CONSTIPATION 11/16/16 13:00 Sennosides (Senokot) 17.2 mg Q12H PRN PO MODERATE - SEVERE CONSTIPATION 11/16/16 13:00 Bisacodyl (Dulcolax Supp) 10 mg DAILY PRN RECTAL SEVERE CONSITIPATION 11/16/16 13:00 Lactulose 30 ml 30 ml DAILY PRN PO SEVERE CONSITIPATION 11/16/16 13:00 Sodium Chloride (NS 1000 ml Inj) 1,000 ml @ 42 mls/hr [id number] IV 11/16/16 13:15 11/16/16 13:33 Levetriacetam (Keppra) 500 mg Q12HR PO 11/16/16 21:00 11/19/16 10:24 Atorvastatin Calcium (Lipitor) 20 mg HS G-TUBE 11/16/16 21:00 11/18/16 22:10 Calcitriol (Calcitriol Liq) 1 mcg DAILY G-TUBE 11/17/16 09:00 Ferrous Sulfate (Ferrous Sulfate Liq) 300 mg DAILY G-TUBE 11/17/16 09:00 11/19/16 10:24 Levothyroxine Sodium (Synthroid) 88 mcg DAILY@0600 PO 11/17/16 06:00 11/19/16 05:41 Labetalol HCl (Trandate Inj) 20 mg Q4H PRN IV PUSH sbp>160 11/16/16 17:00 Hydralazine HCl 20 mg 20 mg Q4H PRN IV PUSH SBP >160 11/16/16 17:00 11/17/16 07:13 Nicardipine HCl/ Sodium Chloride (Cardene Inj/NS 250 ml Inj) 260 ml @ 0 mls/hr TITRATE IV 11/16/16 17:00 Hydralazine HCl (Apresoline) 25 mg Q8HR PRN PO SBP > 170 11/17/16 10:00 11/18/16 22:10 Medical Decision Making MDM Remarks 86-year-old male s/p fall at home, closed head injury and a small amount of traumatic right parietal subarachnoid hemorrhage and parafalcine subdural, stable on f/u CT Head 11/17 Plan Plan Remarks nonsurgical mgt, cont medical mgt, Flory Burrell Nov 19, 2016 16:29
[2016-11-19] MEDS: SODIUM CHLORIDE 0.9% FLUSH 10 ML FLUSH IV FLUSH SCH (21:00)
[2016-11-19 21:16] LABS: MEAN CORPUSCULAR HGB CONC 36.9 % (32.0-36.0)
[2016-11-19] MEDS: ATORVASTATIN 20 MG TAB G-TUBE SCH (21:45)
[2016-11-19] MEDS: SODIUM CHLOR 0.9% 1000 ML INJ 1,000 ML IV SCH (23:00)
[2016-11-20] VITALS: BP 141/72; PULSE 74; RESP 18; TEMP 98.4; O2SAT 97
[2016-11-20 04:00] VITALS: BP 132/63; PULSE 78; RESP 18; TEMP 98.8; O2SAT 96
[2016-11-20] MEDS: CHLORHEXIDINE GLUCONATE 2 % 1 PACK (2 CLOTHS) TOP SCH (04:00)
[2016-11-20] MEDS: LEVOTHYROXINE SODIUM 88 MCG TAB PO SCH (05:46)
[2016-11-20 07:00] LABS: BACTERIA, URINE OCC /hpf; BLOOD, URINE MOD (NEG); GLUCOSE,URINE NEG (NEG); KETONE, URINE NEG (NEG); MUCUS URINE FEW /lpf (OCC); NITRITE,URINE NEG (NEG); URINE COLOR YELLOW (YELLW/STRAW)
[2016-11-20 07:26] LABS: COMMENT (UR) CATH-CULTURE IND; CULTURE IF INDICATED CATH CULTURE IND
[2016-11-20 08:00] VITALS: BP 150/70; PULSE 84; RESP 20; TEMP 98; O2SAT 95
[2016-11-20] MEDS: FERROUS SULFATE 300 MG /5ML UDC G-TUBE SCH (09:35)
[2016-11-20] MEDS: levETIRAcetam 500 MG TAB PO SCH ×2 (09:36→20:39)
[2016-11-20] MEDS: PANTOPRAZOLE SODIUM 40 MG VIAL IV SCH (09:36)
--- NOTE | 2016-11-20 10:14 | HHI.PR ---
Subjective Subjective Remarks awakes to voice, oriented x 2 per nursing, more sleepy today difficult to obtain ROS speech at times difficult to understand, same as yesterday no fever tolerating tube feeding okay no family at bsd tele reviewed, afib, episode of triplets Review of Systems Constitutional Constitutional Remarks 12 point ros difficult to obtain Vitals/Results Vital Signs Vital Signs Date Time Temp Pulse Resp B/P Pulse Ox O2 Delivery O2 Flow Rate FiO2 11/20/16 08:00 98.0 84 20 150/70 95 11/20/16 04:00 98.8 78 18 132/63 96 11/20/16 00:00 98.4 74 18 141/72 97 11/19/16 20:56 97.8 78 16 147/78 93 11/19/16 20:00 79 11/19/16 16:00 99.1 81 20 125/61 98 11/19/16 13:43 97.6 62 20 125/59 96 11/19/16 12:00 97.7 78 20 157/72 99 CBC/BMP: 11/19/16 0844 11/19/16 0844 Lab Results Laboratory Tests Test 11/20/16 06:30 Urine Color YELLOW Urine Turbidity CLEAR Urine pH 6.0 Urine Specific [place] 1.020 Urine Protein 100 mg/dL Urine Glucose (UA) NEG mg/dL Urine Ketones NEG mg/dL Urine Occult Blood MOD Urine Nitrite NEG Urine Bilirubin NEG Urine Urobilinogen LESS THAN 2.0 MG/DL Urine Leukocyte Esterase TRACE Urine RBC 10 /hpf Urine WBC 5 /hpf Urine Bacteria OCC /hpf Urine Mucus FEW /lpf Microscopic Urinalysis Comment CATH-CULTURE IND Microbiology Microbiology 11/20/16 Urine Culture, Received Pending Physical Exam General General Appearance: Well Developed, No Acute Distress, Comfortable Eyes Eye Exam: Pupils Equal, Pupils Reactive Ears & Nose Ears & Nose Exam: Nasal Mucosa [place] Throat Throat Exam: Oral Mucosa [place] & Moist Neck Neck Exam: Neck Supple, Trachea Midline Pulmonary Resp Exam: Clear Bilaterally Cardiology CV Exam: Regular, Murmur Gastrointestinal/Abdomen GI Exam: Soft, Non-Tender, Bowel Sounds Present, Non-Distended GI Remarks Peg tube with tube feeding Musculoskeletal MS Exam: Joints Intact Integumentary Skin Exam: Warm, Dry Extremeties Extremities Exam: No Edema, Pedal Pulses Palpable Neurologic Neuro Exam: Awake, Moving All Extremities, No Focal Deficits VTE Prophylaxis VTE Prophylaxis Device: SCDs Assessment/Plan Problem List: (1) Traumatic subarachnoid hemorrhage (2) SAH (subarachnoid hemorrhage) (3) Gait disorder (4) Chronic anticoagulation (5) Atrial fibrillation (6) Dementia (7) Weakness (8) Thrombocytopenia Assessment/Plan S/P fall at home with resultant closed head injury and a small amount of traumatic right parietal subarachnoid hemorrhage and parafalcine subdural pt. on coumadin, on hold, received FFP non surgical management neurosurgery following, ok to resume Coumadin one week per their recommendation Seizure precautions continue Keppra 500 mg po bid neuro checks BP control, Hydralazine PRN. Has been stable Appreciate neuro input, per recommendations- may not be advisable to restart oac and may need to be on aspirin only once cleared by nsx. Recommends to consider watchman device by maintenance machinist in the future for cardioembolic protection in place of oac Dementia hx dysphagia, cachexia, has peg tube continue tube feedings, tolerating well OOB today with assist, daily PT Afib Coumadin on hold consider Watchman eval as OP Poss ASA can be started in one week HR elevated, PVCs --will start Coreg 3.125 mg po bid Leukocytosis, low grade fever x 1, 99.9 UC pending bacteriuria CBC pending Thrombocytopenia Platelets stable, trending up Monitor for bleeding CM for dc planning, SNF placement-pending D/W pt's , agreeable with holding on Coumadin, understands risks associated with anticoagulation. Okay with rehabilitation placement DNR status possible dc today D/W RN D/W CM This patient was seen by myself and Dr. Turner, this note is written on his behalf Problem Qualifiers (1) Atrial fibrillation: Qualified Code: I48.91 - Atrial fibrillation, unspecified type (2) Dementia: Qualified Code: F03.90 - Dementia without behavioral disturbance, unspecified dementia type Josee Cevallos Nov 20, 2016 10:14
[2016-11-20 10:18] LABS: HEMATOCRIT 34.6 % (39.0-51.0); MEAN CELL VOLUME 108.8 FL (80.0-100.0); MEAN CORPUSCULAR HEMOGLOBIN 40.2 PG (27.0-34.0); PLATELET COUNT 120 TH/MM3 (150-450); RED BLOOD COUNT 3.18 MIL/MM3 (4.50-5.90); RED CELL DISTRIBUTION WIDTH 12.9 % (11.6-17.2); WHITE BLOOD COUNT 9.3 TH/MM3 (4.0-11.0)
[2016-11-20 10:19] LABS: REVIEW FLAG FINAL
[2016-11-20 10:36] LABS: BICARBONATE 28.1 MEQ/L (21.0-32.0); POTASSIUM 3.6 MEQ/L (3.5-5.1)
[2016-11-20 12:00] VITALS: BP 145/75; PULSE 85; RESP 20; TEMP 98.7; O2SAT 98
--- NOTE | 2016-11-20 15:19 | HHI.PR ---
Review/Management Diagnosis/Plan: (1) Traumatic subarachnoid hemorrhage Plan: 2/2 fall with inr of 2.1. thus component of anti-coagulant associated ICH recs plan for snf today aspirin only once cleared by nsx consider of watchman device by container coordinator in the future for cardioembolic protection in place of oac p.t. will need outpatient f/u with pcp/cardiology and d/w medical (2) Gait disorder Plan: likely multifactorial: vestibular dysfunction, cognition, arthritis, low muscle bulk however, may also have multiple system atrophy affecting his gait and swallowing ability recs p.t. outpatient assessments (3) Atrial fibrillation Plan: on coumadin (4) Chronic anticoagulation (5) Hyponatremia Plan: resolved Subjective Subjective Comments No acute events reported No headache No chest pain No dyspnea Active Medications Current Medications Medications (Trade) Dose Ordered Sig/Giorgi Route Start Time Stop Time Status Last Admin (NS Flush) 2 ml UNSCH PRN IV FLUSH 11/16/16 13:00 (NS Flush) 2 ml BID IV FLUSH 11/16/16 21:00 11/18/16 22:11 (Tylenol) 650 mg Q6H PRN PO 11/16/16 13:00 (Protonix Inj) 40 mg DAILY IV 11/17/16 09:00 11/20/16 09:36 Miscellaneous Information 1 Q361D XX 11/16/16 13:00 (Chlorhexidine 2% Cloth) 3 pack Taper DAILY@04 TOP 11/17/16 04:00 11/13/17 03:59 11/17/16 04:00 (Chlorhexidine 2% Cloth) 3 pack UNSCH PRN TOP 11/16/16 13:00 (Kayla-Colace) 1 tab BID PO 11/16/16 21:00 11/19/16 21:49 (Milk Of Magnesia Liq) 30 ml Q12H PRN PO 11/16/16 13:00 (Senokot) 17.2 mg Q12H PRN PO 11/16/16 13:00 (Dulcolax Supp) 10 mg DAILY PRN RECTAL 11/16/16 13:00 (Lactulose Liq) 30 ml DAILY PRN PO 11/16/16 13:00 (Keppra) 500 mg Q12HR PO 11/16/16 21:00 11/20/16 09:36 (Lipitor) 20 mg HS G-TUBE 11/16/16 21:00 11/19/16 21:45 (Calcitriol Liq) 1 mcg DAILY G-TUBE 11/17/16 09:00 (Ferrous Sulfate Liq) 300 mg DAILY G-TUBE 11/17/16 09:00 11/20/16 09:35 (Synthroid) 88 mcg DAILY@0600 PO 11/17/16 06:00 11/20/16 05:46 (Apresoline) 25 mg Q8HR PRN PO 11/17/16 10:00 11/18/16 22:10 (Coreg) 3.125 mg Q12HR PO 11/20/16 10:15 Allergies Allergies Coded Allergies Penicillin (Verified Allergy, Severe, CHILD GIVEN TO FAST, 11/16/16) Review of Systems All other ROS: ROS reviewed as documented in chart Exam I&O / VS Vital Signs Date Time Temp Pulse Resp B/P Pulse Ox O2 Delivery O2 Flow Rate FiO2 11/20/16 12:00 98.7 85 20 145/75 98 11/20/16 08:00 98.0 84 20 150/70 95 11/20/16 04:00 98.8 78 18 132/63 96 11/20/16 00:00 98.4 74 18 141/72 97 11/19/16 20:56 97.8 78 16 147/78 93 11/19/16 20:00 79 11/19/16 16:00 99.1 81 20 125/61 98 General: No acute distress Eye: EOMI Respiratory: Non-labored respirations Neurologic: Alert Psychiatric: Cooperative Exam Comments sitting up, working with therapist, alert, ox 1-2, not to date, follows, dysarthric speech, eomi, vff grossly full, bandage over rt cheek, no tremors, increased tone in ue, agarwal to gravity, sensory not reliable but withdraws to pin in all 4 ext, msr trace, no clonus, planterflexor, gait not assessed 2/2 fall risk Objective Micro and Labs Laboratory Tests Test 11/20/16 11/20/16 06:30 08:45 Urine Color YELLOW Urine Turbidity CLEAR Urine pH 6.0 Urine Specific [place] 1.020 Urine Protein 100 Urine Glucose (UA) NEG Urine Ketones NEG Urine Occult Blood MOD Urine Nitrite NEG Urine Bilirubin NEG Urine Urobilinogen LESS THAN 2.0 Urine Leukocyte Esterase TRACE Urine RBC 10 Urine WBC 5 Urine Bacteria OCC Urine Mucus FEW Microscopic Urinalysis Comment CATH-CULTURE IND White Blood Count 9.3 Red Blood Count 3.18 Hemoglobin 12.8 Hematocrit 34.6 Mean Corpuscular Volume 108.8 Mean Corpuscular Hemoglobin 40.2 Mean Corpuscular Hemoglobin 36.9 Concent Red Cell Distribution Width 12.9 Platelet Count 120 Mean Platelet Volume 8.8 Sodium Level 143 Potassium Level 3.6 Chloride Level 108 Carbon Dioxide Level 28.1 Anion Gap 7 Blood Urea Nitrogen 34 Creatinine 1.05 Estimat Glomerular Filtration 67 Rate Random Glucose 155 Calcium Level 8.5 Date/Time Procedure Status Source Growth 11/20/16 06:30 Urine Culture Received Urine Catheterized Urine Pending Problem Qualifiers (1) Atrial fibrillation: Qualified Code: I48.91 - Atrial fibrillation, unspecified type Benedicto Downey MD Nov 20, 2016 15:19 Benedicto Downey MD Nov 20, 2016 15:19
--- NOTE | 2016-11-20 15:53 | HHI.NSPN ---
Note Status Status: Progress Note Interval History Interval History 86-year-old gentleman with mild dementia status post lip and fall accident at home with resultant closed head injury and a small amount of traumatic right parietal subarachnoid hemorrhage and parafalcine subdural. He is awake and alert with no complaints of headache or nausea. No complaints of weakness or numbness in the extremities. 11/18: Patient remains awake and alert without complaints of headache. 11/19: being cleaned by medical health researcher. Remains alert, confused, calling for his . 11/20: appears less confused, sitting in chair, smiling. in room reports patient is doing well. Labs, Micro, & Vital Signs Results Date Time Temp Pulse Resp B/P Pulse Ox O2 Delivery O2 Flow Rate FiO2 11/20/16 12:00 98.7 85 20 145/75 98 11/20/16 08:00 98.0 84 20 150/70 95 11/20/16 04:00 98.8 78 18 132/63 96 11/20/16 00:00 98.4 74 18 141/72 97 11/19/16 20:56 97.8 78 16 147/78 93 11/19/16 20:00 79 11/19/16 16:00 99.1 81 20 125/61 98 Constitutional Vital Signs Date Time Temp Pulse Resp B/P Pulse Ox O2 Delivery O2 Flow Rate FiO2 11/20/16 12:00 98.7 85 20 145/75 98 11/20/16 08:00 98.0 84 20 150/70 95 11/20/16 04:00 98.8 78 18 132/63 96 11/20/16 00:00 98.4 74 18 141/72 97 11/19/16 20:56 97.8 78 16 147/78 93 11/19/16 20:00 79 11/19/16 16:00 99.1 81 20 125/61 98 Review of Systems/Exam Exam Alert, sitting up in chair. No acute distress. Smiling and pleasant, slightly conversing. Underlying baseline dementia. CN: pupils equal, facial motor symmetric Neck: soft, supple Motor: moves all four extremities Medications Current Medications Current Medications Medications (Trade) Dose Ordered Sig/Giorgi Route PRN Reason Start Time Stop Time Status Last Admin Dose Admin Sodium Chloride (NS Flush) 2 ml UNSCH PRN IV FLUSH FLUSH AFTER USING IV ACCESS 11/16/16 13:00 Sodium Chloride (NS Flush) 2 ml BID IV FLUSH 11/16/16 21:00 11/18/16 22:11 Acetaminophen (Tylenol) 650 mg Q6H PRN PO PAIN 1-10 AND/OR FEVER >101F 11/16/16 13:00 Pantoprazole Sodium (Protonix Inj) 40 mg DAILY IV 11/17/16 09:00 11/20/16 09:36 Miscellaneous Information 1 Q361D XX 11/16/16 13:00 Chlorhexidine Gluconate (Chlorhexidine 2% Cloth) 3 pack Taper DAILY@04 TOP 11/17/16 04:00 11/13/17 03:59 11/17/16 04:00 Chlorhexidine Gluconate (Chlorhexidine 2% Cloth) 3 pack UNSCH PRN [facility] 11/16/16 13:00 Senna/Docusate Sodium (Kayla-Colace) 1 tab BID PO 11/16/16 21:00 11/19/16 21:49 Magnesium Hydroxide (Milk Of Magnesia Liq) 30 ml Q12H PRN PO MILD - MODERATE CONSTIPATION 11/16/16 13:00 Sennosides (Senokot) 17.2 mg Q12H PRN PO MODERATE - SEVERE CONSTIPATION 11/16/16 13:00 Bisacodyl (Dulcolax Supp) 10 mg DAILY PRN RECTAL SEVERE CONSITIPATION 11/16/16 13:00 Lactulose (Lactulose Liq) 30 ml DAILY PRN PO SEVERE CONSITIPATION 11/16/16 13:00 Levetriacetam (Keppra) 500 mg Q12HR PO 11/16/16 21:00 11/20/16 09:36 Atorvastatin Calcium (Lipitor) 20 mg HS G-TUBE 11/16/16 21:00 11/19/16 21:45 Calcitriol (Calcitriol Liq) 1 mcg DAILY G-TUBE 11/17/16 09:00 Ferrous Sulfate (Ferrous Sulfate Liq) 300 mg DAILY G-TUBE 11/17/16 09:00 11/20/16 09:35 Levothyroxine Sodium (Synthroid) 88 mcg DAILY@0600 PO 11/17/16 06:00 11/20/16 05:46 Hydralazine HCl (Apresoline) 25 mg Q8HR PRN PO SBP > 170 11/17/16 10:00 11/18/16 22:10 Carvedilol (Coreg) 3.125 mg Q12HR PO 11/20/16 10:15 Medical Decision Making MDM Remarks 86-year-old male s/p fall at home, closed head injury and a small amount of traumatic right parietal subarachnoid hemorrhage and parafalcine subdural, stable on f/u CT Head 11/17 stable neurological exam underlying baseline dementia Plan Plan Remarks cont nonsurgical mgt, hold Coumadin at this time due to acute ICH, ok to start aspirin clear to dc to rehab from NRS standpoint dw in room will sign off, call Flory Leo Nov 20, 2016 15:53
[2016-11-20 16:00] VITALS: BP 150/83; PULSE 91; RESP 20; TEMP 97.6; O2SAT 96
[2016-11-20] MEDS ORDERED: CARV3.125 PO (17:32)
[2016-11-20] MEDS ORDERED: LEVE500 PO (17:32)
--- NOTE | 2016-11-20 17:32 | HHI.DCPOC ---
Discharge Care Plan Diagnosis: (1) Altered mental status (2) Atrial fibrillation (3) Traumatic subarachnoid hemorrhage (4) Gait disorder (5) Dementia (6) Thrombocytopenia (7) Weakness Your Health Problems Are: Anxiety Difficulty with ADL Goals to Promote Your Health * To prevent worsening of your condition and complications * To maintain your health at the optimal level Directions to Meet Your Goals Take your medications as prescribed Follow your dietary instruction Follow activity as directed Keep your appointments as scheduled Take your immunizations and boosters as scheduled If your symptoms worsen call your PCP, if no PCP go to Urgent Care Center or Emergency Room Smoking is Dangerous to Your Health. Avoid second hand smoke Call the 24-hour hour crisis hotline for domestic abuse at Josee Cevallos [facility] Nov 20, 2016 17:32
[2016-11-20 20:00] VITALS: BP 132/79; PULSE 99; RESP 20; TEMP 98; O2SAT 97
[2016-11-20] MEDS: ATORVASTATIN 20 MG TAB G-TUBE SCH (20:39)
[2016-11-20] MEDS: DOCUSATE SODIUM 50 MG/SENNA 8.6 MG TAB PO SCH (20:39)
[2016-11-20] MEDS: CARVEDILOL 3.125 MG TAB PO SCH (20:39)
[2016-11-20] MEDS: SODIUM CHLORIDE 0.9% FLUSH 10 ML FLUSH IV FLUSH SCH (20:48)
[2016-11-21] VITALS: BP 123/73; PULSE 93; RESP 20; TEMP 97.9; O2SAT 96
[2016-11-21 04:00] VITALS: BP 145/78; PULSE 94; RESP 20; TEMP 97.7; O2SAT 96
[2016-11-21] MEDS: LEVOTHYROXINE SODIUM 88 MCG TAB PO SCH (06:36)
[2016-11-21 07:58] VITALS: BP 166/78; PULSE 75; RESP 19; TEMP 97.9; O2SAT 99
[2016-11-21] MEDS: SODIUM CHLORIDE 0.9% FLUSH 10 ML FLUSH IV FLUSH SCH (09:00)
[2016-11-21] MEDS: levETIRAcetam 500 MG TAB PO SCH (09:00)
[2016-11-21] MEDS: FERROUS SULFATE 300 MG /5ML UDC G-TUBE SCH (09:54)
[2016-11-21] MEDS: PANTOPRAZOLE SODIUM 40 MG VIAL IV SCH (09:55)
[2016-11-21] MEDS: CARVEDILOL 3.125 MG TAB PO SCH (09:55)
[2016-11-21] MEDS: DOCUSATE SODIUM 50 MG/SENNA 8.6 MG TAB PO SCH (09:56)
--- NOTE | 2016-11-21 11:29 | HHI.PR ---
Subjective Subjective Remarks more awake today, oriented x 2 was out of bed yesterday tolerating tube feeding pleasant no fever tele no ectopy, SR Review of Systems Constitutional Constitutional Remarks 12 point ros difficult to obtain Vitals/Results Intake & Output 11/20/16 11/20/16 11/21/16 15:00 23:00 07:00 Output Total 100 ml Balance -100 ml Output Urine Total 100 ml # Voids 4 1 1 # Bowel Movements 1 Vital Signs Vital Signs Date Time Temp Pulse Resp B/P Pulse Ox O2 Delivery O2 Flow Rate FiO2 11/21/16 07:58 97.9 75 19 166/78 99 11/21/16 04:00 97.7 94 20 145/78 96 11/21/16 00:00 97.9 93 20 123/73 96 11/20/16 20:00 98.0 99 20 132/79 97 11/20/16 16:00 97.6 91 20 150/83 96 11/20/16 12:00 98.7 85 20 145/75 98 CBC/BMP: 11/20/16 0845 11/20/16 0845 Physical Exam General General Appearance: Well Developed, No Acute Distress, Comfortable Eyes Eye Exam: Pupils Equal, Pupils Reactive Ears & Nose Ears & Nose Exam: Nasal Mucosa [place] Throat Throat Exam: Oral Mucosa [place] & Moist Neck Neck Exam: Neck Supple, Trachea Midline Pulmonary Resp Exam: Clear Bilaterally Cardiology CV Exam: Regular, Murmur Gastrointestinal/Abdomen GI Exam: Soft, Non-Tender, Bowel Sounds Present, Non-Distended GI Remarks Peg tube with tube feeding Musculoskeletal MS Exam: Joints Intact Integumentary Skin Exam: Warm, Dry Extremeties Extremities Exam: No Edema, Pedal Pulses Palpable Neurologic Neuro Exam: Awake, Moving All Extremities, No Focal Deficits VTE Prophylaxis VTE Prophylaxis Device: SCDs Assessment/Plan Problem List: (1) Traumatic subarachnoid hemorrhage (2) SAH (subarachnoid hemorrhage) (3) Gait disorder (4) Chronic anticoagulation (5) Atrial fibrillation (6) Dementia (7) Weakness (8) Thrombocytopenia Assessment/Plan S/P fall at home with resultant closed head injury and a small amount of traumatic right parietal subarachnoid hemorrhage and parafalcine subdural pt. on coumadin, on hold, received FFP non surgical management neurosurgery following, recommends no Coumadin, ASA okay Seizure precautions continue Keppra 500 mg po bid BP control, Hydralazine PRN. Has been stable Appreciate neuro input, per recommendations- may not be advisable to restart oac and may need to be on aspirin only once cleared by nsx. Recommends to consider watchman device by machinist 2nd shift in the future for cardioembolic protection in place of oac D/W neuro, ok for dc and start ASA in one week Dementia hx dysphagia, cachexia, has peg tube continue tube feedings, tolerating well OOB today with assist, daily PT Afib Coumadin on hold consider Watchman eval as OP ASA can be started in one week HR elevated, PVCs -on Coreg 3.125 mg po bid no ectopy, BP stable. Leukocytosis, WBC now normal no fever UC pending bacteriuria-mold asymptomatic Thrombocytopenia Platelets stable, trending up Monitor for bleeding CM for dc planning, SNF placement, has a bed D/W pt's , agreeable with holding on Coumadin, understands risks associated with anticoagulation. Okay with rehabilitation placement DNR status Ok to dc per neurosurgery and neurolog Resume ASA in 10 days F/U neurology, cardiology for Watchman eval instructions placed in 3008 Diet-tube feeding Activity-as tolerated D/W RN D/W CM This patient was seen by myself and Dr. Turner, this note is written on his behalf Discharge Minutes: 45 Problem Qualifiers (1) Atrial fibrillation: Qualified Code: I48.91 - Atrial fibrillation, unspecified type (2) Dementia: Qualified Code: F03.90 - Dementia without behavioral disturbance, unspecified dementia type Josee Cevallos Nov 21, 2016 11:29
--- NOTE | 2016-11-21 11:30 | HHI.DS ---
Discharge Summary Admission Date Nov 16, 2016 at 13:01 Discharge Date: Nov 21, 2016 Admitting Diagnosis right traumatic subarachnoid/subdural hematoma, anticoagulated CBC/BMP: 11/20/16 0845 11/20/16 0845 Significant Findings Laboratory Tests Test 11/19/16 11/20/16 11/20/16 08:44 06:30 08:45 White Blood Count 14.5 TH/MM3 (4.0-11.0) Red Blood Count 3.57 MIL/MM3 3.18 MIL/MM3 (4.50-5.90) (4.50-5.90) Hematocrit 38.6 % 34.6 % (39.0-51.0) (39.0-51.0) Mean Corpuscular Volume 108.0 FL 108.8 FL (80.0-100.0) (80.0-100.0) Mean Corpuscular Hemoglobin 39.2 PG 40.2 PG (27.0-34.0) (27.0-34.0) Mean Corpuscular Hemoglobin 36.3 % 36.9 % Concent (32.0-36.0) (32.0-36.0) Platelet Count 132 TH/MM3 120 TH/MM3 (150-450) (150-450) Blood Urea Nitrogen 30 MG/DL (7-18) 34 MG/DL (7-18) Estimat Glomerular Filtration 65 ML/MIN (>89) 67 ML/MIN (>89) Rate Random Glucose 165 MG/DL 155 MG/DL (74-106) (74-106) Urine Protein 100 mg/dL (NEG-TRACE) Urine Occult Blood MOD (NEG) Urine Leukocyte Esterase TRACE (NEG) Urine RBC 10 /hpf (0-3) Urine Bacteria OCC /hpf (NONE) Urine Mucus FEW /lpf (OCC) Hemoglobin 12.8 GM/DL (13.0-17.0) Chloride Level 108 MEQ/L (98-107) Discharge Instructions Follow up Referrals: Cardiology Neurology with Benedicto Downey MD PCP Follow-up New Medications: Carvedilol (Coreg) 3.125 Mg Tab 3.125 MG PO Q12HR Blood Pressure Management #60 TAB Levetiracetam (Keppra) 500 Mg Tab 500 MG PO Q12HR Seizure Control #60 Ref 0 TAB Continued Medications: Atorvastatin (Atorvastatin) 20 Mg Tab 20 MG G-TUBE HS Cholesterol Management #30 Ref 0 TAB Calcitriol Liq (Calcitriol Liq) 1 Mcg/Ml Soln 1 MCG G-TUBE DAILY Calcium Supplement #30 Ref 0 ML Ferrous Sulfate Liq (Ferrous Sulfate Liq) 300 Mg/5 Ml Soln 220 ML G-TUBE DAILY Nutritional Supplement #300 Ref 0 ML Levothyroxine (Levothyroxine) 88 Mcg Tab 88 MCG G-TUBE DAILY Thyroid #30 Ref 0 TAB Multiple Vitamins W/ Minerals (Centrum) 1 Chew 1 TAB G-TUBE DAILY Nutritional Supplement Ref 0 TAB Discontinued Medications: Warfarin (Warfarin) 2.5 Mg Tab 2.5 MG G-TUBE DAILY Blood Clot Prevention #30 Ref 0 TAB Josee Cevallos Nov 21, 2016 11:30
[2016-11-21 11:40] VITALS: BP 151/71; PULSE 75; RESP 18; TEMP 97.6; O2SAT 97
== END 2016-11-21 16:29 | DRG 86 ==
LOC: NEPC 08:15 → NEDA 13:01 → N03A 15:01 → N05A 11-17 09:45
PROVIDERS: ADMIT Anesthesiology; ATTEND Anesthesiology
PROC: 30233K1 Transfusion of Nonautologous Frozen Plasma into Peripheral Vein, Percutaneous Approach (ICD-10-PCS; principal; 2016-11-16)
DX: S06.6X0A Traumatic subarachnoid hemorrhage without loss of consciousness, initial encounter (principal); E87.1 Hypo-osmolality and hyponatremia; R64 Cachexia; D69.6 Thrombocytopenia, unspecified; I48.2 Chronic atrial fibrillation; F03.90 Unspecified dementia, unspecified severity, without behavioral disturbance, psychotic disturbance, mood disturbance, and anxiety; S06.5X0A Traumatic subdural hemorrhage without loss of consciousness, initial encounter; R13.10 Dysphagia, unspecified; Z93.1 Gastrostomy status; I34.0 Nonrheumatic mitral (valve) insufficiency; E03.9 Hypothyroidism, unspecified; I25.10 Atherosclerotic heart disease of native coronary artery without angina pectoris; E78.5 Hyperlipidemia, unspecified; I10 Essential (primary) hypertension; R47.02 Dysphasia; K21.9 Gastro-esophageal reflux disease without esophagitis; I49.3 Ventricular premature depolarization; I44.0 Atrioventricular block, first degree; T45.515A Adverse effect of anticoagulants, initial encounter; R40.2413 Glasgow coma scale score 13-15, at hospital admission; R82.71 Bacteriuria; M25.512 Pain in left shoulder; M19.90 Unspecified osteoarthritis, unspecified site; R26.9 Unspecified abnormalities of gait and mobility; W01.0XXA Fall on same level from slipping, tripping and stumbling without subsequent striking against object, initial encounter; Y92.009 Unspecified place in unspecified non-institutional (private) residence as the place of occurrence of the external cause; Z66 Do not resuscitate; Z68.23 Body mass index [BMI] 23.0-23.9, adult; Z85.828 Personal history of other malignant neoplasm of skin; Z88.0 Allergy status to penicillin; Z95.1 Presence of aortocoronary bypass graft
CPT/HCPCS: 36430; 70450; 72100; 72125; 73030; 73650; 80048; 80053; 81001; 82607; 83735; 84100; 85025; 85027; 85610; 85730; 86927; 87086; 93005; C9113; J0360; J3430; J7030; J7050; P9017

== ENCOUNTER 2016-11-26 12:38 | Emergency (ER) | payer MEDICARE ==
[~2016-11-26] VITALS: Ht 182.9 cm; Wt 75.0 kg
[~2016-11-26 12:38] MED LIST changes: -ATOR20TA G-TUBE; +ATOR20TA15 G-TUBE; -BAZACRE TOP; +CALC1SOL G-TUBE; -CALTTAB G-TUBE; +CARV3.125 PO; +CENTCHW4 G-TUBE; -FERR220E G-TUBE; +FERR300S G-TUBE; +LEVE500 PO; -SUPETAB30 G-TUBE; -WARF2.5T40 PO; -WARF5TAB PO; -[UNRECOGNIZED DRUG - CODE] G-TUBE
[2016-11-26 12:44] VITALS: BP 143/63; PULSE 75; RESP 16; TEMP 97.3
[2016-11-26 12:59] VITALS: BP 143/63; PULSE 62; RESP 14; TEMP 97.3; O2SAT 96
[2016-11-26] MEDS ORDERED: SODIUM CHLORID 0.9% 500 ML INJ 500 ML IV ONE (13:00)
--- NOTE | 2016-11-26 13:00 | PD ---
HPI Chief Complaint: Syncope/Near-Syncope Time Seen by Provider: 12:53 Travel History International Travel<30 days: No Contact w/Intl Traveler<30days: No Traveled to known affect area: No History of Present Illness HPI 86-year-old male complains of left shoulder pain. Patient had a syncopal episode at the senior care today. Patient was found to be hypotensive at the scene. Systolic blood pressure was in the 70s. EMS was called. Patient was transported to ED for evaluation. Patient has history intracranial hemorrhage in the past. Patient has gastric feeding tube in place. Patient reportedly had a fall last night. Patient complains of left shoulder pain. Patient denies any headache. Patient denies any chest pain or shortness of breath. Patient denies abdominal pain. Patient has history of hypertension, CAD status post CABG and stent placement, hypothyroidism. Patient has history of subdural hematoma after a fall and was admitted to senior care subsequently. PFSH Past Medical History Hx Anticoagulant Therapy: Yes (WARFARIN) Blood Disorders: No Heart Rhythm Problems: Yes Cancer: No Cardiovascular Problems: Yes High Cholesterol: Yes Chest Pain: No Congestive Heart Failure: No Cerebrovascular Accident: No Diabetes: No Diminished Hearing: No Endocrine: Yes Gastrointestinal Disorders: Yes (acid reflux) Glaucoma: No Genitourinary: No Hepatitis: No Hiatal Hernia: No Hypertension: Yes Immune Disorder: No Musculoskeletal: Yes (arthritis) Neurologic: No Psychiatric: No Reproductive: No Respiratory: No Integumentary: Yes (SKIN CA ) Thyroid Disease: Yes (hypothyroidism) ?: Not Past Surgical History AICD: No Body Medical Devices: STERNAL WIRE FROM CABG Cardiac Surgery: Yes (CABG X 4, LEFT CAROTID ENDART. ) Eye Surgery: Yes (CATARACT L&R 2011) Joint Replacement: No Oral Surgery: Yes (TONSILLSL; UVULA ) Pacemaker: No Other Surgery: Yes Social History Alcohol Use: No (PT DENIES ) Tobacco Use: No Substance Use: No (PT DENIES) Allergies-Medications (Allergen,Severity, Reaction): Coded Allergies: Penicillin (Verified Allergy, Severe, CHILD GIVEN TO FAST, 11/26/16) Reported Meds & Prescriptions Reported Meds & Active Scripts Active Keppra (Levetiracetam) 500 Mg Tab 500 Mg PO Q12HR Coreg (Carvedilol) 3.125 Mg Tab 3.125 Mg PO Q12HR Reported Tylenol (Acetaminophen) 325 Mg Tab 650 Mg G-TUBE Q4H PRN Melatonin 5 Mg Tab 6 Mg G-TUBE HS Calcitriol Liq (Calcitriol) 1 Mcg/Ml Soln 1 Mcg G-TUBE DAILY Levothyroxine (Levothyroxine Sodium) 88 Mcg Tab 88 Mcg G-TUBE DAILY Ferrous Sulfate Liq (Ferrous Sulfate) 300 Mg/5 Ml Soln 220 Ml G-TUBE DAILY Atorvastatin (Atorvastatin Calcium) 20 Mg Tab 20 Mg G-TUBE HS Centrum (Multiple Vitamins W/ Minerals) 1 Chew 1 Tab G-TUBE DAILY Review of Systems General / Constitutional: No: Fever Eyes: No: Visual changes HENT: No: Headaches Cardiovascular: No: Chest Pain or Discomfort Respiratory: No: Shortness of Breath Gastrointestinal: No: Abdominal Pain Genitourinary: No: Dysuria Musculoskeletal: Positive: Pain Skin: No Rash Neurologic: No: Weakness Psychiatric: No: Depression Endocrine: No: Polydipsia Hematologic/Lymphatic: No: Easy Bruising Physical Exam Narrative GENERAL: Well-nourished, well-developed patient. SKIN: Focused skin assessment warm/dry. HEAD: Normocephalic. EYES: No scleral icterus. No injection or drainage. NECK: Supple, trachea midline. No JVD or lymphadenopathy. CARDIOVASCULAR: Regular rate and rhythm without murmurs, gallops, or rubs. RESPIRATORY: Breath sounds equal bilaterally. No accessory muscle use. GASTROINTESTINAL: Abdomen soft, non-tender, nondistended. MUSCULOSKELETAL: Patient has diffuse tenderness over the left shoulder joint. Limited range of motion the left shoulder. BACK: Nontender without obvious deformity. No CVA tenderness. Neurologic exam: Patient awake and answer to his name. Patient oriented to name. Patient with minimal movement of the extremity. No obvious focal neurological deficit. Data Data Last Documented VS Vital Signs Date Time Temp Pulse Resp B/P Pulse Ox O2 Delivery O2 Flow Rate FiO2 11/26/16 15:15 64 15 154/70 97 Room Air 11/26/16 12:59 97.3 Orders Electrocardiogram (11/26/16 12:54) Complete Blood Count With Diff (11/26/16 12:54) Comprehensive Metabolic Panel (11/26/16 12:54) Creatine Kinase (Cpk) (11/26/16 12:54) Troponin I (11/26/16 12:54) Prothrombin Time / Inr (Pt) (11/26/16 12:54) Act Partial Throm Time (Ptt) (11/26/16 12:54) Blood Culture (11/26/16 12:54) Urinalysis - C+S If Indicated (11/26/16 12:54) Thyroid Stimulating Hormone (11/26/16 12:54) Chest, Single Ap (11/26/16 12:54) Ct Brain W/O Iv Contrast(Rout) (11/26/16 12:54) Iv Access Insert/Monitor (11/26/16 12:54) Ecg Monitoring (11/26/16 12:54) Oximetry (11/26/16 12:54) Shoulder, Limited(2vws) (11/26/16 12:54) Sodium Chlorid 0.9% 500 Ml Inj (Ns 500 M (11/26/16 13:00) Sodium Chlor 0.9% 1000 Ml Inj (Ns 1000 M (11/26/16 15:15) Labs Laboratory Tests Test 11/26/16 11/26/16 13:00 16:25 White Blood Count 8.3 TH/MM3 Red Blood Count 3.54 MIL/MM3 Hemoglobin 13.5 GM/DL Hematocrit 38.0 % Mean Corpuscular Volume 107.2 FL Mean Corpuscular Hemoglobin 38.0 PG Mean Corpuscular Hemoglobin 35.4 % Concent Red Cell Distribution Width 12.4 % Platelet Count 190 TH/MM3 Mean Platelet Volume 9.1 FL Neutrophils (%) (Auto) 78.2 % Lymphocytes (%) (Auto) 9.1 % Monocytes (%) (Auto) 10.4 % Eosinophils (%) (Auto) 2.0 % Basophils (%) (Auto) 0.3 % Neutrophils # (Auto) 6.5 TH/MM3 Lymphocytes # (Auto) 0.8 TH/MM3 Monocytes # (Auto) 0.9 TH/MM3 Eosinophils # (Auto) 0.2 TH/MM3 Basophils # (Auto) 0.0 TH/MM3 CBC Comment DIFF FINAL Differential Comment Prothrombin Time 11.4 SEC Prothromb Time International 1.0 RATIO Ratio Activated Partial 27.5 SEC Thromboplast Time Sodium Level 137 MEQ/L Potassium Level 4.6 MEQ/L Chloride Level 100 MEQ/L Carbon Dioxide Level 29.6 MEQ/L Anion Gap 7 MEQ/L Blood Urea Nitrogen 35 MG/DL Creatinine 1.19 MG/DL Estimat Glomerular Filtration 58 ML/MIN Rate Random Glucose 148 MG/DL Calcium Level 8.6 MG/DL Total Bilirubin 1.3 MG/DL Aspartate Amino Transf 27 U/L (AST/SGOT) Alanine Aminotransferase 27 U/L (ALT/SGPT) Alkaline Phosphatase 96 U/L Total Creatine Kinase 50 U/L Troponin I 0.03 NG/ML Total Protein 6.4 GM/DL Albumin 2.8 GM/DL Thyroid Stimulating Hormone 9.980 uIU/ML 3rd Gen Urine Color LIGHT-YELLOW Urine Turbidity CLEAR Urine pH 7.0 Urine Specific [place] 1.007 Urine Protein TRACE mg/dL Urine Glucose (UA) NEG mg/dL Urine Ketones NEG mg/dL Urine Occult Blood TRACE Urine Nitrite NEG Urine Bilirubin NEG Urine Urobilinogen LESS THAN 2.0 MG/DL Urine Leukocyte Esterase SMALL Urine RBC 1 /hpf Urine WBC 2 /hpf Urine Bacteria RARE /hpf Microscopic Urinalysis Comment CULT NOT INDICATED MDM Medical Decision Making Medical Screen Exam Complete: Yes Emergency Medical Condition: Yes Interpretation(s) Last Impressions Shoulder X-Ray 11/26/16 1254 Signed Impressions: Service Date/Time: Saturday, November 26, 2016 13:32 - CONCLUSION: No acute disease. No significant change has occurred. Superior subluxation of the humeral head characteristic of a chronic rotator cuff tear. Cody Godinez MD Chest X-Ray 11/26/16 1254 Signed Impressions: Service Date/Time: Saturday, November 26, 2016 13:30 - CONCLUSION: Compensated cardiomegaly otherwise negative Wes Quintanilla MD FACR 1505 p.m. CBC WBC 8.3. Hemoglobin 13.5 hematocrit 30.0. MCV 107.2. 78 neutrophil. BUN 35. Glucose 148. TSH 9.98. Differential Diagnosis Differential diagnoses including head injury, neck injury, chest injury, abdominal injury, extremity injury, dehydration, electrolyte imbalance. Narrative Course 86-year-old male with altered mental status, hypertension, left shoulder pain. Patient had a fall last night at the senior care. Normal saline solution 500 cc IV bolus. Normal saline solution 100 cc an hour. Diagnosis Primary Impression: Contusion of left shoulder Qualified Code: S40.012A - Contusion of left shoulder, initial encounter Additional Impression: History of intracranial hemorrhage Patient Instructions: General Instructions Additional Instructions: Tylenol for pain. Follow-up with local physician. Return as needed. Med/Other Pt SpecificInfo: No Change to Meds Disposition: 03 DISCHARGE TO SNF Condition: Stable [place] MD Nov 26, 2016 13:00
[2016-11-26] MEDS ORDERED: MELA5TAB15 G-TUBE (13:36)
[2016-11-26] MEDS ORDERED: TYLE325T G-TUBE (13:36)
[2016-11-26 13:37] LABS: AUTOMATED NEUTROPHIL # 6.5 TH/MM3 (1.8-7.7); BASOPHIL % 0.3 % (0.0-2.0); EOSINOPHIL # 0.2 TH/MM3 (0-0.4); HEMO FLAGS DIFF FINAL; LYMPH % 9.1 % (9.0-44.0); LYMPHOCYTE # 0.8 TH/MM3 (1.0-4.8); MEAN CELL VOLUME 107.2 FL (80.0-100.0); MEAN CORPUSCULAR HGB CONC 35.4 % (32.0-36.0); MONO % 10.4 % (0.0-8.0); NEUT % 78.2 % (16.0-70.0); PLATELET COUNT 190 TH/MM3 (150-450); RED BLOOD COUNT 3.54 MIL/MM3 (4.50-5.90); RED CELL DISTRIBUTION WIDTH 12.4 % (11.6-17.2); WHITE BLOOD COUNT 8.3 TH/MM3 (4.0-11.0)
[2016-11-26 13:47] LABS: ALT (GPT) 27 U/L (12-78); ANION GAP 7 MEQ/L (5-15); AST (GOT) 27 U/L (15-37); BICARBONATE 29.6 MEQ/L (21.0-32.0); BLOOD UREA NITROGEN 35 MG/DL (7-18); CHLORIDE 100 MEQ/L (98-107); GLOMERULAR FILTRATION RATE 58 ML/MIN (>89); POTASSIUM 4.6 MEQ/L (3.5-5.1); SODIUM (NA) 137 MEQ/L (136-145)
--- NOTE | 2016-11-26 13:49 | RADRPT ---
EXAM DATE/TIME: 11/26/2016 13:32 [facility] COMPARISON: SHOULDER LEFT LTD (2VWS), November 16, 2016, 9:14. INDICATIONS : Patient fell this morning. MEDICAL HISTORY : Hypertension. SURGICAL HISTORY : Carotid endarterectomy. CABGTonsillectomy ENCOUNTER: Initial ACUITY: 1 day PAIN SCORE: 7/10 LOCATION: Left shoulder FINDINGS: Two view examination of the left shoulder demonstrates no evidence of fracture or dislocation. Superi or subluxation of the humeral head is again noted.. Bony mineralization is normal. CONCLUSION: No acute disease. No significant change has occurred. Superior subluxation of the humeral head characteristic of a chronic rotator cuff tear. Cody Godinez MD on November 26, 2016 at 13:45 Board Certified Radiologist. This report was verified electronically.
[2016-11-26 13:51] LABS: APTT (PATIENT) 27.5 SEC (24.3-30.1); PROTHROMBIN TIME - PATIENT 11.4 SEC (9.8-11.6)
[2016-11-26 13:57] LABS: ALKALINE PHOSPHATASE 96 U/L (45-117); TOTAL BILIRUBIN ADULT 1.3 MG/DL (0.2-1.0)
[2016-11-26 14:03] LABS: CREATINE KINASE 50 U/L (39-308)
--- NOTE | 2016-11-26 14:42 | RADRPT ---
EXAM DATE/TIME: 11/26/2016 13:30 [facility] COMPARISON: CHEST SINGLE AP, January 05, 2016, 8:41. INDICATIONS : Patient fell this morning. MEDICAL HISTORY : Hypertension. SURGICAL HISTORY : Carotid endarterectomy. CABG,Tonsillectomy ENCOUNTER: Initial ACUITY: 1 day PAIN SCORE: 0/10 LOCATION: Bilateral chest FINDINGS: The lungs are clear. The heart is minimally enlarged. Sternal wires previous bypass are noted. The p ulmonary vascularity is normal. There is no evidence for infiltrate or failure. Degenerative changes are present of both shoulders worse on the left than the right. CONCLUSION: Compensated cardiomegaly otherwise negative Wes Quintanilla MD FACR on November 26, 2016 at 14:40 Board Certified Radiologist. This report was verified electronically.
[2016-11-26 15:15] VITALS: BP 154/70; PULSE 64; RESP 15; O2SAT 97
[2016-11-26] MEDS ORDERED: SODIUM CHLOR 0.9% 1000 ML INJ 1,000 ML IV SCH (15:15)
[2016-11-26 16:41] LABS: BACTERIA, URINE RARE /hpf; BLOOD, URINE TRACE (NEG); COMMENT (UR) CULT NOT INDICATED; CULTURE IF INDICATED CULT NOT INDICATED; GLUCOSE,URINE NEG (NEG); KETONE, URINE NEG (NEG); NITRITE,URINE NEG (NEG); URINE COLOR LIGHT-YELLOW (YELLW/STRAW)
--- NOTE | 2016-11-26 16:56 | RADRPT ---
EXAM DATE/TIME: 11/26/2016 15:40 [facility] COMPARISON: CT BRAIN W/O CONTRAST, November 17, 2016, 9:07. INDICATIONS : Trauma; fall. RADIATION DOSE: 38.55 CTDIvol (mGy) MEDICAL HISTORY : Cardiovascular disease. Subdural hematoma SURGICAL HISTORY : CABG ENCOUNTER: Initial ACUITY: 1 day PAIN SCALE: Non-responsive LOCATION: cranial TECHNIQUE: Multiple contiguous axial images were obtained of the head. Using automated exposure control and adj ustment of the mA and/or kV according to patient size, radiation dose was kept as low as reasonably a chievable to obtain optimal diagnostic quality images. DICOM format image data is available electro nically for review and comparison. FINDINGS: CEREBRUM: The ventricles are enlarged but stable. Parenchymal hemorrhage along the convexity of the right parie jun lobe has significantly decreased in density. There is no evidence of new hemorrhage or developing edema. No extra-axial fluid collections are seen. POSTERIOR FOSSA: The cerebellum and brainstem are intact. The 4th ventricle is midline. The cerebellopontine angle i s unremarkable. EXTRACRANIAL: The visualized portion of the orbits is intact. SKULL: The calvaria is intact. No evidence of skull fracture. CONCLUSION: Decreasing density of right cerebral convexity parenchymal hemorrhage. No evidence of new hemorrhage, developing edema or significant mass effect. Stable mildly enlarged ventricles. Cody Godinez MD on November 26, 2016 at 16:51 Board Certified Radiologist. This report was verified electronically.
--- NOTE | 2016-11-27 15:51 | EKG ---
Date Performed: 11/26/2016 Time Performed: 12:59:56 PTAGE: 86 years EKG: Afib ABNORMAL ECG INTERPRETATION BASED ON A DEFAULT AGE OF 40 YEARS NO PREVIOUS TRACING DOCTOR: Khang Alexandre Interpretating Date/Time 11/27/2016 15:45:07
== END 2016-11-26 19:16 ==
LOC: NEPE 12:38
DX: S40.012A Contusion of left shoulder, initial encounter (principal); R55 Syncope and collapse; Y92.129 Unspecified place in nursing home as the place of occurrence of the external cause; I48.91 Unspecified atrial fibrillation; Z79.01 Long term (current) use of anticoagulants; I10 Essential (primary) hypertension; E78.00 Pure hypercholesterolemia, unspecified; M19.90 Unspecified osteoarthritis, unspecified site
CPT/HCPCS: 70450; 71010; 73030; 80053; 81001; 82550; 84443; 84484; 85025; 85610; 85730; 87040; 93005; 96360; 96361; 99285; J7030; J7040

== ENCOUNTER → 2017-01-11 | Outpatient (CLI) | payer MEDICARE ==
[~2017-01-11] MED LIST changes: +MELA5TAB15 G-TUBE; +TYLE325T G-TUBE
--- NOTE | 2017-01-11 10:39 | RADRPT ---
EXAM DATE/TIME: 01/11/2017 00:00 [facility] COMPARISON: No previous studies available for comparison. INDICATIONS : Dysphagia. FLUORO TIME: 4.8 minutes IMAGE COUNT: 0 CONTRAST: Dose as prescribed by speech pathologist. MEDICAL HISTORY : None. SURGICAL HISTORY : Tonsillectomy. Carotid endarterectomy. ENCOUNTER: Initial ACUITY: >1 year PAIN SCORE: 0/10 LOCATION: Neck. FINDINGS: A modified barium swallow was performed with speech pathology. Patient was given a variety of liquids to swallow. There is suboptimal movement of the vallecula and persistent vallecular pooling. With thin liquids th ere was an an episode of penetration and aspiration. This was improved with thick liquids and head ch in tilting For a full detailed report, see report by the speech pathologist. CONCLUSION: Abnormalities as described above. Please see speech pathology report. Samuel Beckwith MD on January 11, 2017 at 10:37 Board Certified Radiologist. This report was verified electronically.
== END ==
LOC: HRAD 09:21
PROVIDERS: ATTEND Psychiatry & Neurology Neurology
DX: R13.10 Dysphagia, unspecified (principal)
CPT/HCPCS: 74230; 92611; G8996; G8997; G8998